=== PATIENT | male | born 1935 | race Caucasian/White ===

== ENCOUNTER 2022-02-22 14:03 | Inpatient (IN) | payer MEDICARE, SELFPAY ==
[2022-02-22] VITALS (9 sets, daily range): BP systolic 113–128; BP diastolic 52–74; PULSE 74–98; RESP 16; TEMP 36.7; O2SAT 94–100; BMI 25.7; BMI 25.3
--- NOTE | 2022-02-22 14:45 | ED.GENADULT ---
HPI - General Adult General Chief complaint: Extremity Pain/Injury, Lower Stated complaint: Weeping Leg Time Seen by Provider: 02/22/22 14:16 Source: patient and family History of Present Illness HPI narrative: 86-year-old man presenting to the emergency department [facility] on recommendation of wound care provider who were now able to assess him at his place of residence with ?Trevor who is the fiancee of his daughter (daughter lives there also) where he has been residing again over the last few weeks since discharge from long term I believe [facility] in [facility]. This is the name that Spencer gives me. Information is a little disconnected in my conversation with him; I am able to reach granddaughter to get more information. I do not have contact information for erin and daughter is not available. Apparently has chronic right-sided hip pain which is Spencer's primary complaint today. Wound care came to assess him and felt that due to odor and drainage from wounds in setting of edema and heart failure, that he be evaluated. Last hospitalized here in September of this year, please see below, wound cultures also were obtained. Spencer denies recent falls. Per my conversation with his granddaughter he has consulted with a surgeon regarding his right hip for replacement but due to sores in the area and elsewhere on his body needed to see wound care and orthopedic surgeon referred I believe to [facility], to heal these wounds prior to proceeding with this hip repair. He has not had any fever apparently. I would note that he feels warm on my exam but afebrile on admission. He is not complaining of wound specific area pain. On exam I see eschar to areas on his skin; unclear how long they have looked like this. I ask Spencer whether not he takes pain medication. He is unclear on this. Granddaughter notes low-dose oxycodone which was to be increased. Imported from September 2021 admission Past Medical History 1. Hypertension. 2. Hypercholesterolemia. 3. Ischemic stroke in 2010 after a knee surgery. His right side was affected along with balance. He has minimal residual deficits except for balance. 4. Balance problem from previous stroke. 5. Vitamin-D deficiency. 6. Sensorineural hearing loss bilaterally. 7. DVT of the right lower extremity in 2019. 8. Atrial fibrillation. 9. Gross hematuria noted during a hospitalization in March 2021. 10. Left complex renal cyst. 11. Right quadriceps weakness. 12. Right lower extremity ulcers. 13. Chronic diastolic heart failure. Patient had an echo done 08/26/2021, but I do not have access to those results. His most recent echo that I can find the results for was 04/08/21 and is as follows: 1. Normal LV size, normal wall thickness, normal global systolic function with an estimated EF of 60 - 65%. 2. Right ventricular cavity size is mildly enlarged, global systolic RV function is normal. 3. Severely enlarged left atrium. 4. The aortic valve is sclerotic, no stenosis and trivial regurgitation. 5. The mitral valve is normal, mild mitral regurgitation. 6. The inferior vena cava is dilated, respiratory size variation greater than 50%. 7. 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 8. 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 9. 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 There is small residual L-R shunt. 14. Bilateral lower extremity edema. 15. Anemia during hospitalization 09/29/2021. 16. Chronic anticoagulation with Eliquis for atrial fibrillation. Past Surgical History 1. Appendectomy. 2. Colonoscopy screening in 2009 which was normal. 3. PFO closure in 2009. 4. Bilateral knee replacement in 2009. Your 5. EGD with biopsy 09/30/2021. Wound cultures from September 2021 showed broadly sensitive Enterococcus faecalis Related Data Home Medications Medication Instructions Recorded Confirmed acetaminophen 500 mg tablet 1,000 mg PO TID 02/22/22 02/22/22 apixaban 5 mg tablet (Eliquis) 5 mg PO Q12H 02/22/22 02/22/22 cyanocobalamin (vitamin B-12) 1,000 mcg PO DAILY 02/22/22 02/22/22 1,000 mcg tablet furosemide 40 mg tablet 40 mg PO DAILY 02/22/22 02/22/22 rosuvastatin 5 mg tablet 5 mg PO Q24H 02/22/22 02/22/22 sennosides 8.6 mg-docusate sodium 4 tab-cap PO BID 02/22/22 02/22/22 50 mg tablet (Senna Plus) tamsulosin 0.4 mg capsule 0.4 mg PO Q24H 02/22/22 02/22/22 Allergies Allergy/AdvReac Type Severity Reaction Status Date / Time No Known Drug Allergies Allergy Verified 02/22/22 14:16 Review of Systems Status of ROS: Reports: unobtainable due to mental status (Unreliable, obtained from granddaughter) [facility] Medical History (Updated 02/23/22 @ 00:51 by Alana Renee MD) Ambulatory dysfunction Balance problem BPH (benign prostatic hyperplasia) Cellulitis of right lower extremity CKD (chronic kidney disease), stage III Complex renal cyst Constipation CVA (cerebral vascular accident) Diastolic heart failure DVT (deep venous thrombosis) Gross hematuria Hypercholesterolemia Hypertension Lower extremity ulceration Normal colonoscopy Normocytic anemia Permanent atrial fibrillation Pressure ulcer Primary osteoarthritis of right hip Quadriceps weakness Sensorineural hearing loss (SNHL) of both ears Severe sepsis with acute organ dysfunction Subjective tinnitus of right ear Urinary retention with incomplete bladder emptying Vitamin D deficiency Surgical History (Updated 02/23/22 @ 00:27 by Alana Renee MD) H/O esophagogastroduodenoscopy History of bilateral knee replacement Hx of appendectomy S/P patent foramen ovale closure Family History (Updated 02/23/22 @ 00:28 by Alana Renee MD) Mother Arthritis High blood pressure Stroke Sister Breast cancer Social History (Updated 02/23/22 @ 00:30 by Alana Renee MD) Narrative: Living with daughter and her Trevor acosta, who is an RN. Spencer wishes to be DNR/DNI. Smoking Status: Former smoker How often do you have a drink containing alcohol: never AUDIT-C Alcohol total score: 0 Non-prescribed substance use: denies use Exam Narrative: Exam Narrative: Pleasant. Flatter facies. Evidence of dementia. In no distress though clearly has pain with any manipulation of right hip. Has difficulty with recall. Mildly hard of hearing. CN 2-12 otherwise intact. Significant odor noted on entry into the patient room. Large erosions on the right leg. Mild calor and mild erythema in the area with some blistering. Generalized moderate pitting edema. Blackened eschar on the heel. Any movement of his right leg in general causes a great deal of pain response. The left foot and ankle are supported in a padded splint/boot wrapped with gauze and sanitary napkins and Telfa. There is an erosion starting on the anterior lower esquivel. No significant calor erythema or drainage. Mild edema of the foreskin and large ulcer underneath. Areas of erythema induration calor broadly over the sacral area with a central area of eschar formation. He is breathing easily. Lungs appear to be clear. Cardiovascular is distant and irregularly irregular Const: Vital Signs, click to edit/add: Vital Signs - 24 hr 02/22/22 14:12 02/22/22 15:30 02/22/22 15:00 Temperature 98.0 F Pulse Rate [Right Pulse Oximeter] 80 74 83 Respiratory Rate 16 16 16 Blood Pressure [Le ft Upper Arm] 125/74 124/66 Pulse Oximetry 99 95 Oxygen Delivery Me thod Room Air Nasal Cannula Oxygen Flow Rate 2 02/22/22 15:15 02/22/22 15:30 02/22/22 15:50 Temperature Pulse Rate [Right Pulse Oximeter] 82 76 79 Respiratory Rate 16 16 16 Blood Pressure [Le ft Upper Arm] 128/56 L 121/63 127/52 L Pulse Oximetry 94 100 100 Oxygen Delivery Me thod Nasal Cannula Nasal Cannula Nasal Cannula Oxygen Flow Rate 2 2 2 02/22/22 16:00 02/22/22 16:50 02/22/22 15:00 Temperature Pulse Rate [Right Pulse Oximeter] 81 98 Respiratory Rate 16 16 Blood Pressure [Le ft Upper Arm] 113/63 125/60 Pulse Oximetry 100 94 Oxygen Delivery Me thod Nasal Cannula Nasal Cannula Nasal Cannula Oxygen Flow Rate 2 2 2 Documenting provider has reviewed patient's vital signs: yes Course Course Hospital Course: Obtain urine from a catheterized specimen. Looked frankly purulent. Vital Signs Vital signs: Initial Vital Signs Temperature 98.0 F 02/22/22 14:12 Temperature Source Temporal Artery Scan 02/22/22 14:12 Pulse Rate 80 02/22/22 14:12 Respiratory Rate 16 02/22/22 14:12 Blood Pressure 125/74 02/22/22 14:12 Blood Pressure Mean 91 02/22/22 14:12 Blood Pressure Position Supine 02/22/22 14:12 Pulse Oximetry 99 02/22/22 14:12 Oxygen Delivery Method 02/22/22 14:12 Vital Signs Temperature 98.0 F 02/22/22 14:12 Pulse Rate 80 02/22/22 14:12 Respiratory Rate 16 02/22/22 14:12 Blood Pressure 125/74 02/22/22 14:12 Pulse Oximetry 99 02/22/22 14:12 Oxygen Delivery Method 02/22/22 14:12 Temperature 98.1 F 02/23/22 12:27 Pulse Rate 76 02/23/22 12:27 Respiratory Rate 16 02/23/22 12:27 Blood Pressure 93/49 L 02/23/22 12:27 Pulse Oximetry 95 02/23/22 12:27 Oxygen Delivery Method 02/23/22 11:00 Oxygen Flow Rate 0 02/23/22 11:00 Medical Decision Making MDM Narrative Medical decision making narrative: IV was established. Blood cultures were collected White count is doubled from what had been prior. Have now obtained urine specimen now which looks like abscess purulence. Will be initiating antibiotics. Has received IV fluids. I do have concerns regarding potential vulnerable adult status and will be discussing this with care team. upon my review of imaging -- hip/pelvis xray with severe osteoarthritic chages in right hip especially. no evidences of osteo in sacrum or calcaneus. Lab Data Labs: Lab Results 02/22/22 02/22/22 02/22/22 Range/Units 14:35 15:08 15:08 WBC 13.21 H (4.50-11.00) K/uL RBC 2.98 L (4.30-5.90) m/uL Hgb 8.3 L (13.5-17.5) gm/dL Hct 27.0 L (37.0-53.0) % MCV 91 (80-100) fL MCH 28 (26-34) pg MCHC 31 L (32-36) gm/dL RDW Coeff of Zach 23.2 H (11.5-15.5) % Plt Count 534 H (140-440) K/uL Neut % (Auto) 77.5 H (42.0-72.0) % Lymph % (Auto) 12.8 L (20-44) % [place] % (Auto) 7.1 (0.0-11.0) % Eos % (Auto) 1.4 (0.0-7.0) % Baso % (Auto) 0.5 (0.0-3.0) % Neut # (Auto) 10.20 H (1.7-7.0) K/uL Lymph # (Auto) 1.70 (0.90-2.90) K/uL [place] # (Auto) 0.90 (0.00-0.90) K/UL Eos # (Auto) 0.20 (0.00-0.50) K/uL Baso # (Auto) 0.10 (0.00-0.30) K/uL Abs Immat Gran (auto) 0.09 (0.00-0.30) K/uL INR (0.91-1.10) APTT (23-33) Seconds VBG pH (7.32-7.43) VBG pCO2 (40-50) mmHG VBG pO2 (25-47) mmHG VBG HCO3 (21-28) mmol/L Sodium 131 L (135-149) mmol/L Potassium 4.0 (3.6-5.1) mmol/L Chloride 96 (96-114) mmol/L Carbon Dioxide 27 (20-32) mmol/L BUN 33 H (7-30) mg/dL Creatinine 0.8 (0.5-1.5) mg/dL Estimated Creat Clear 65.10 Estimated GFR 86 ml/min Glucose 113 (60-115) mg/dL Venous Lactic Acid (Serial Order) Calcium 8.1 L (8.4-10.6) mg/dL Magnesium 2.1 (1.5-2.6) mg/dL Total Bilirubin 0.6 (0.1-1.5) mg/dL AST 44 H (12-35) U/L ALT 22 (4-50) U/L Alkaline Phosphatase 133 (40-150) U/L C-Reactive Protein 19.8 H (0.5-1.0) mg/dL NT-Pro-B Natriuret Pep 2240 H (0-450) PG/mL Total Protein 7.0 (6.0-8.3) g/dL Albumin 3.0 L (3.3-5.0) g/dL Urine Color (Yellow) Urine Appearance (Clear) Urine pH (5.0-8.5) Ur Specific Alexander (1.000-1.030) Urine Protein (Negative) Urine Glucose (UA) (Negative) Urine Ketones (Negative) Urine Blood (Negative) Urine Nitrite (Negative) Urine Bilirubin (Negative) Urine Urobilinogen (0.2-1.0) Ur Leukocyte Esterase (Negative) Urine RBC (0-2) Urine WBC (0-5) Ur Squamous Epith Cells (None-Few) Urine Bacteria (None) SARS-CoV-2 (PCR) Negative SARS-CoV-2 (Negative) 02/22/22 02/22/22 02/22/22 Range/Units 15:08 15:08 15:25 WBC (4.50-11.00) K/uL RBC (4.30-5.90) m/uL Hgb (13.5-17.5) gm/dL Hct (37.0-53.0) % MCV (80-100) fL MCH (26-34) pg MCHC (32-36) gm/dL RDW Coeff of Zach (11.5-15.5) % Plt Count (140-440) K/uL Neut % (Auto) (42.0-72.0) % Lymph % (Auto) (20-44) % [place] % (Auto) (0.0-11.0) % Eos % (Auto) (0.0-7.0) % Baso % (Auto) (0.0-3.0) % Neut # (Auto) (1.7-7.0) K/uL Lymph # (Auto) (0.90-2.90) K/uL [place] # (Auto) (0.00-0.90) K/UL Eos # (Auto) (0.00-0.50) K/uL Baso # (Auto) (0.00-0.30) K/uL Abs Immat Gran (auto) (0.00-0.30) K/uL INR 1.71 H (0.91-1.10) APTT 55 H (23-33) Seconds VBG pH 7.395 (7.32-7.43) VBG pCO2 45 (40-50) mmHG VBG pO2 34.8 (25-47) mmHG VBG HCO3 28 (21-28) mmol/L Sodium (135-149) mmol/L Potassium (3.6-5.1) mmol/L Chloride (96-114) mmol/L Carbon Dioxide (20-32) mmol/L BUN (7-30) mg/dL Creatinine (0.5-1.5) mg/dL Estimated Creat Clear Estimated GFR ml/min Glucose (60-115) mg/dL Venous Lactic Acid (Serial Order) Calcium (8.4-10.6) mg/dL Magnesium (1.5-2.6) mg/dL Total Bilirubin (0.1-1.5) mg/dL AST (12-35) U/L ALT (4-50) U/L Alkaline Phosphatase (40-150) U/L C-Reactive Protein (0.5-1.0) mg/dL NT-Pro-B Natriuret Pep (0-450) PG/mL Total Protein (6.0-8.3) g/dL Albumin (3.3-5.0) g/dL Urine Color (Yellow) Urine Appearance (Clear) Urine pH (5.0-8.5) Ur Specific Alexander (1.000-1.030) Urine Protein (Negative) Urine Glucose (UA) (Negative) Urine Ketones (Negative) Urine Blood (Negative) Urine Nitrite (Negative) Urine Bilirubin (Negative) Urine Urobilinogen (0.2-1.0) Ur Leukocyte Esterase (Negative) Urine RBC (0-2) Urine WBC (0-5) Ur Squamous Epith Cells (None-Few) Urine Bacteria (None) SARS-CoV-2 (PCR) (Negative) 02/22/22 Range/Units 17:05 WBC (4.50-11.00) K/uL RBC (4.30-5.90) m/uL Hgb (13.5-17.5) gm/dL Hct (37.0-53.0) % MCV (80-100) fL MCH (26-34) pg MCHC (32-36) gm/dL RDW Coeff of Zach (11.5-15.5) % Plt Count (140-440) K/uL Neut % (Auto) (42.0-72.0) % Lymph % (Auto) (20-44) % [place] % (Auto) (0.0-11.0) % Eos % (Auto) (0.0-7.0) % Baso % (Auto) (0.0-3.0) % Neut # (Auto) (1.7-7.0) K/uL Lymph # (Auto) (0.90-2.90) K/uL [place] # (Auto) (0.00-0.90) K/UL Eos # (Auto) (0.00-0.50) K/uL Baso # (Auto) (0.00-0.30) K/uL Abs Immat Gran (auto) (0.00-0.30) K/uL INR (0.91-1.10) APTT (23-33) Seconds VBG pH (7.32-7.43) VBG pCO2 (40-50) mmHG VBG pO2 (25-47) mmHG VBG HCO3 (21-28) mmol/L Sodium (135-149) mmol/L Potassium (3.6-5.1) mmol/L Chloride (96-114) mmol/L Carbon Dioxide (20-32) mmol/L BUN (7-30) mg/dL Creatinine (0.5-1.5) mg/dL Estimated Creat Clear Estimated GFR ml/min Glucose (60-115) mg/dL Venous Lactic Acid (Serial Order) Calcium (8.4-10.6) mg/dL Magnesium (1.5-2.6) mg/dL Total Bilirubin (0.1-1.5) mg/dL AST (12-35) U/L ALT (4-50) U/L Alkaline Phosphatase (40-150) U/L C-Reactive Protein (0.5-1.0) mg/dL NT-Pro-B Natriuret Pep (0-450) PG/mL Total Protein (6.0-8.3) g/dL Albumin (3.3-5.0) g/dL Urine Color Yellow (Yellow) Urine Appearance Turbid A (Clear) Urine pH 5.5 (5.0-8.5) Ur Specific Alexander 1.020 (1.000-1.030) Urine Protein 2+ A (Negative) Urine Glucose (UA) Negative (Negative) Urine Ketones Negative (Negative) Urine Blood 2+ A (Negative) Urine Nitrite Positive A (Negative) Urine Bilirubin Negative (Negative) Urine Urobilinogen 0.2 (0.2-1.0) Ur Leukocyte Esterase 3+ A (Negative) Urine RBC 2-5 A (0-2) Urine WBC >100 A (0-5) Ur Squamous Epith Cells None (None-Few) Urine Bacteria Many A (None) SARS-CoV-2 (PCR) (Negative) Discharge Plan Discharge Clinical Impression: Chronic hip pain, Edema, peripheral, Pressure ulcer, Urinary tract infection Patient Disposition: Admitted As Inpatient Condition: Stable
--- NOTE | 2022-02-22 14:48 | CRLHL7_ITS ---
For Patients: As a result of the Century Cures Act, medical imaging exams and procedure reports are released immediately into your electronic medical record. You may view this report before your referring provider. If you have questions, please contact your health care provider. INDICATION: Pain. Sacral erosion. TECHNIQUE: AP pelvis and 2 views of the right hip. COMPARISON: October 08, 2016. FINDINGS: Dramatic change in the appearance of the right hip. Specifically the right femoral head is flattened or possibly even eroded and there is deformity of the acetabulum presumably on a chronic basis although this is new compared October 14, 2016. No definite acute fracture identified. Degenerative arthritis left hip, symphysis pubis, and lower lumbar spine. Given the limitations of plain radiography, consider CT of the pelvis and right hip if fracture or infection is of clinical concern. IMPRESSION: Flattening of the right femoral head with partial subluxation of the femoral acetabular articulation. Clinical correlation is strongly recommended. Further imaging evaluation such as with CT is suggested. Dictated by Marcus Christian MD @ 02/22/2022 5:51:07 PM (Electronically Signed)
--- NOTE | 2022-02-22 14:48 | CRLHL7_ITS ---
For Patients: As a result of the Century Cures Act, medical imaging exams and procedure reports are released immediately into your electronic medical record. You may view this report before your referring provider. If you have questions, please contact your health care provider. Indication: Skin erosion, evaluate for osteo. Technique: Right calcaneus 2 views. Comparison: None. Findings: Overlying fabric artifact limits evaluation. There is a soft tissue ulceration in the plantar aspect of the heel. No gas within soft tissues. No definite radiographic evidence of osteomyelitis. Plantar calcaneal spur. No acute fracture identified. Prominent soft tissue swelling in the dorsum of the foot. Impression: 1. Soft tissue ulceration in the plantar aspect of the heel. No definite radiographic evidence of osteomyelitis. 2. Prominent soft tissue swelling in the dorsum of the foot. Dictated by Bebe Clark MD @ 02/22/2022 5:50:13 PM (Electronically Signed)
[2022-02-22] MEDS: 0.9 % SODIUM CHLORIDE 500 ML 500 ML IV (15:15)
[2022-02-22 15:22] LABS: HCO3 VBG 28 mmol/L (21-28); PCO2 VBG 45 mmHG (40-50); PO2 VBG 34.8 mmHG (25-47); pH VBG 7.395 (7.32-7.43)
[2022-02-22 15:34] LABS: Lactate Sepsis w/Reflex* 1.9 mmol/L (0.5-1.9)
[2022-02-22 15:44] LABS: SARS PCR* Negative SARS-CoV-2 (Negative)
[2022-02-22 15:45] LABS: Basophils Percent Auto 0.5 % (0.0-3.0); Eosinophils Percent Auto 1.4 % (0.0-7.0); Hemoglobin* 8.3 gm/dL (13.5-17.5); Immature Granulocytes Abs Auto 0.09 K/uL (0.00-0.30); Lymphocytes Percent Auto 12.8 % (20-44); Mean Corpuscular HGB Conc 31 gm/dL (32-36); Mean Corpuscular Hemoglobin 28 pg (26-34); Mean Corpuscular Volume 91 fL (80-100); Monocytes Percent Auto 7.1 % (0.0-11.0); Neutrophils Percent Auto 77.5 % (42.0-72.0); Platelet Count* 534 K/uL (140-440); RDW Coefficient of Variation % 23.2 % (11.5-15.5); Red Blood Count 2.98 m/uL (4.30-5.90); White Blood Count* 13.21 K/uL (4.50-11.00)
[2022-02-22 15:54] LABS: Slide Review Reflex No
[2022-02-22 15:56] LABS: Chloride* 96 mmol/L (96-114)
[2022-02-22 15:57] LABS: Sodium* 131 mmol/L (135-149)
[2022-02-22 15:59] LABS: Creatinine* 0.8 mg/dL (0.5-1.5); Estimated Glomerular Filt Rate 86 ml/min
[2022-02-22 16:00] LABS: Alanine Aminotransferase* 22 U/L (4-50); Alkaline Phosphatase* 133 U/L (40-150); Aspartate Amino Transferase* 44 U/L (12-35); Bilirubin Total* 0.6 mg/dL (0.1-1.5); Blood Urea Nitrogen* 33 mg/dL (7-30); Carbon Dioxide* 27 mmol/L (20-32); Glucose* 113 mg/dL (60-115)
[2022-02-22 16:01] LABS: Calcium* 8.1 mg/dL (8.4-10.6); Magnesium* 2.1 mg/dL (1.5-2.6)
[2022-02-22 16:01] LABS: INR 1.71 (0.91-1.10); Partial Thromboplastin Time* 55 Seconds (23-33); Prothrombin Time 20.5 Seconds
[2022-02-22 16:09] LABS: NT Pro B Type NatriureticPept* 2240 PG/mL (0-450)
[2022-02-22 16:14] LABS: C Reactive Protein* 19.8 mg/dL (0.5-1.0)
[2022-02-22] MEDS: OxyCODONE/APAP 5-325 TABLET 2 TAB PO (16:52)
[2022-02-22 17:26] LABS: Appearance Urine Turbid (Clear); Bilirubin Urine Negative (Negative); Blood Urine 2+ (Negative); Color Urine Yellow (Yellow); Glucose Urine Negative (Negative); Ketones Urine Negative (Negative); Leukocyte Esterase Urine 3+ (Negative); Nitrite Urine Positive (Negative); Protein Urine 2+ (Negative); Urobilinogen Urine 0.2 (0.2-1.0); pH Urine 5.5 (5.0-8.5)
--- NOTE | 2022-02-22 17:28 | ED.NURSE ---
500ml urine output with placement of dunham catheter, Pt again repositioned
[2022-02-22 17:35] LABS: Bacteria Urine Many; WBC Urine >100 (0-5)
[2022-02-22] MEDS: cefTRIAXone 1 GM in 0.9 % SODIUM CHLORIDE Mini-bag 100 ML IVPB (17:48)
--- NOTE | 2022-02-22 18:15 | ED.NURSE ---
[facility] report filed. Web Report Number: [id number]
--- NOTE | 2022-02-22 18:26 | W.PC.EDHO ---
Primary Language: Preferred Language: Orientation Status: [] Alert & Oriented [x] Slight Confusion [] Known Dx Dementia Transfers By: [] Assist of 1 [] Assist of 2 [x] Lift Active Medications Generic Name Dose Route Start Last Admin Trade Name Freq PRN Reason Stop Dose Admin Ceftriaxone Sodium 1 gm/ 100 mls @ 200 mls/hr 02/22/22 17:36 02/22/22 17:48 Sodium Chloride IVPB 02/22/22 17:37 200 mls/hr ONCE ONE Administration Discontinued Medications Generic Name Dose Route Start Last Admin Trade Name Freq PRN Reason Stop Dose Admin Sodium Chloride 500 mls @ 500 mls/hr 02/22/22 14:48 02/22/22 15:15 0.9 % Sodium Chloride 500 Ml IV 02/22/22 15:47 500 mls/hr .Q1H ONE Administration Oxycodone/Acetaminophen 2 tab 02/22/22 16:21 02/22/22 16:52 Oxycodone/Apap 5-325 Tablet PO 02/22/22 16:22 2 tab ONCE ONE Administration Description of Symptoms ED Triage Present Problem Pt brought in by EMS. EMS reports wound care went Description to see pt and reported an increase in drainage, sluffing, and odor on lower legs bilaterally. Pt states he lives with daughter and daughter's boyfriend. Oxygen Administration Pulse Oximetry 94 Pulse Oximetry 100 Pulse Oximetry 100 Pulse Oximetry 100 Pulse Oximetry 94 Pulse Oximetry 95 Pulse Oximetry 99 Oxygen Delivery Method Nasal Cannula Oxygen Delivery Method Nasal Cannula Oxygen Delivery Method Nasal Cannula Oxygen Delivery Method Nasal Cannula Oxygen Delivery Method Nasal Cannula Oxygen Delivery Method Nasal Cannula Oxygen Delivery Method Room Air Oxygen Flow Rate 2 Oxygen Flow Rate 2 Oxygen Flow Rate 2 Oxygen Flow Rate 2 Oxygen Flow Rate 2 Oxygen Flow Rate 2
[2022-02-22] MEDS: OXYCODONE 5 MG TABLET PO (22:06)
[2022-02-22] MEDS: TAMSULOSIN HCL 0.4 MG CAPSULE PO (22:06)
[2022-02-22] MEDS: SODIUM CHLORIDE MINI 0.9% IVPB (22:38)
[2022-02-22] MEDS: CEFTAZIDIME IVPB (22:38)
[2022-02-22] MEDS: 0.9 % SODIUM CHLORIDE 250 ml IV (22:39)
--- NOTE | 2022-02-22 23:47 | PM.IMHP1 ---
Hospitalist- H&P: HPI History of Present Illness Time Seen by Provider: 19:30 Date Seen: 02/22/22 Chief complaint: Weeping Leg Narrative: Spencer Chan is a 86 year old male who presented to the emergency department today the request of a wound care company seeing him today for the 1st time. They were concerned about malodorous pressure ulcers that appear to be infected. Spencer had been in a TCU, went home for a couple of weeks in late December and then was readmitted to [facility] for the 1st week of January with right lower extremity cellulitis. He was treated with antibiotics and symptoms improved. He was then discharged to [facility] for ongoing nursing cares and physical rehabilitation. It is noted from the discharge summary done by Dr. Tillman that nursing attended to a sacral decubitus ulcer and venous bilateral lower extremity ulcers. According to his note, these did not improve much during his stay. His furosemide had been increased there due to persistent lower extremity edema and a Rubalcava catheter that he had for urinary retention was successfully discontinued. He did not make much progress in therapy and continued to need substantial assistance with all ADLs. His family elected to take him home. Dr. Tillman notes that there were significant discharge concerns returning home with family, including that the patient is wheelchair-bound and they do not have a ramp at the home for him to exit in case of an emergency. Abramalexi tells me that it was not going very well at home. He notes that he is completely wheelchair bound and would need the assistance of his family to even get into the wheelchair and then he would sit in it all day long. His daughter bought him a device that goes around his penis so that he could urinate without getting out of the chair. This device would be left on him all day. At night he sleeps in a recliner at home. He does not change position much during the day or at night. He is always on his bottom or back. Spencer asked me several times when he could do to heal these ulcers more quickly. He is very concerned about his condition and would like to be well again. We talked about the importance of nutrition and working hard in therapy as well as pressure relief. I indicated to him that it would take a long time to heal such deep ulcers. He says the ulcers do not hurt, but he is concerned about them. He denies any recent fevers or chills. Review of Systems Status of ROS: Reports: 10 or more systems reviewed and unremarkable except as noted in History and below [facility] Medical History (Updated 02/23/22 @ 00:51 by Alana Renee MD) Ambulatory dysfunction Balance problem BPH (benign prostatic hyperplasia) Cellulitis of right lower extremity CKD (chronic kidney disease), stage III Complex renal cyst Constipation CVA (cerebral vascular accident) Diastolic heart failure DVT (deep venous thrombosis) Gross hematuria Hypercholesterolemia Hypertension Lower extremity ulceration Normal colonoscopy Normocytic anemia Permanent atrial fibrillation Pressure ulcer Primary osteoarthritis of right hip Quadriceps weakness Sensorineural hearing loss (SNHL) of both ears Severe sepsis with acute organ dysfunction Subjective tinnitus of right ear Urinary retention with incomplete bladder emptying Vitamin D deficiency Surgical History (Updated 02/23/22 @ 00:27 by Alana Renee MD) H/O esophagogastroduodenoscopy History of bilateral knee replacement Hx of appendectomy S/P patent foramen ovale closure Family History (Updated 02/23/22 @ 00:28 by Alana Renee MD) Mother Arthritis High blood pressure Stroke Sister Breast cancer Social History (Updated 02/23/22 @ 00:30 by Alana Renee MD) Narrative: Living with daughter and her Trevor acosta, who is an RN. Spencer wishes to be DNR/DNI. Smoking Status: Former smoker How often do you have a drink containing alcohol: never AUDIT-C Alcohol total score: 0 Non-prescribed substance use: denies use Meds Home Medications and Allergies Home Medications Medication Instructions Recorded Confirmed Type acetaminophen 500 mg tablet 1,000 mg PO TID 02/22/22 02/22/22 History apixaban 5 mg tablet (Eliquis) 5 mg PO Q12H 02/22/22 02/22/22 History cyanocobalamin (vitamin B-12) 1,000 mcg PO DAILY 02/22/22 02/22/22 History 1,000 mcg tablet furosemide 40 mg tablet 40 mg PO DAILY 02/22/22 02/22/22 History rosuvastatin 5 mg tablet 5 mg PO Q24H 02/22/22 02/22/22 History sennosides 8.6 mg-docusate sodium 4 tab-cap PO BID 02/22/22 02/22/22 History 50 mg tablet (Senna Plus) tamsulosin 0.4 mg capsule 0.4 mg PO Q24H 02/22/22 02/22/22 History Allergies Allergy/AdvReac Type Severity Reaction Status Date / Time No Known Drug Allergies Allergy Verified 02/22/22 14:16 Exam Narrative: Exam Narrative: General: Gaunt, muscle wasting of extremities. [No acute distress.] [Awake alert oriented x3.] HEENT: [Normocephalic atraumatic], [pupils equally round and reactive to light and accommodation]. Oropharynx [clear]. Mucous membranes are [moist]. [No cervical lymphadenopathy, thyromegaly or carotid bruits]. No JVD. Cardiovascular: [Regular rate and rhythm]. [No murmurs, gallops, or rubs]. Chest: No increased work of breathing. [Clear to auscultation bilaterally. No crackles or wheezes]. Abdomen: Bowel sounds [present]. [Soft, nondistended, nontender.] [No hepatosplenomegaly or masses]. Extremities: [No] edema, [no cyanosis or clubbing]. Skin: [No jaundice,] [no pallor,] [no rashes]. Neuro: [Grossly intact. No focal deficits]. Const: Vital Signs, click to edit/add: Vital Signs - 24 hr 02/22/22 14:12 02/22/22 15:30 02/22/22 15:00 Temperature 98.0 F Pulse Rate [Pulse Oximeter] Pulse Rate [Right Pulse Oximeter] 80 74 83 Respiratory Rate 16 16 16 Blood Pressure [Le ft Upper Arm] 125/74 124/66 Blood Pressure [Ri ght Arm] Pulse Oximetry 99 95 Oxygen Delivery Me thod Room Air Nasal Cannula Oxygen Flow Rate 2 02/22/22 15:15 02/22/22 15:30 02/22/22 15:50 Temperature Pulse Rate [Pulse Oximeter] Pulse Rate [Right Pulse Oximeter] 82 76 79 Respiratory Rate 16 16 16 Blood Pressure [Le ft Upper Arm] 128/56 L 121/63 127/52 L Blood Pressure [Ri ght Arm] Pulse Oximetry 94 100 100 Oxygen Delivery Me thod Nasal Cannula Nasal Cannula Nasal Cannula Oxygen Flow Rate 2 2 2 02/22/22 16:00 02/22/22 16:50 02/22/22 15:00 Temperature Pulse Rate [Pulse Oximeter] Pulse Rate [Right Pulse Oximeter] 81 98 Respiratory Rate 16 16 Blood Pressure [Le ft Upper Arm] 113/63 125/60 Blood Pressure [Ri ght Arm] Pulse Oximetry 100 94 Oxygen Delivery Me thod Nasal Cannula Nasal Cannula Nasal Cannula Oxygen Flow Rate 2 2 2 02/22/22 19:23 02/22/22 19:27 Temperature 98.0 F Pulse Rate [Pulse Oximeter] 89 Pulse Rate [Right Pulse Oximeter] Respiratory Rate 16 16 Blood Pressure [Le ft Upper Arm] Blood Pressure [Ri ght Arm] 128/70 Pulse Oximetry 97 100 Oxygen Delivery Me thod Room Air Room Air Oxygen Flow Rate Hospitalist - H&P: Result Labs Labs: Short CBC 02/22/22 Range/Units 15:08 WBC 13.21 H (4.50-11.00) K/uL Hgb 8.3 L (13.5-17.5) gm/dL Hct 27.0 L (37.0-53.0) % Plt Count 534 H (140-440) K/uL BMP 02/22/22 15:08 Sodium 131 L Potassium 4.0 Chloride 96 Carbon Dioxide 27 BUN 33 H Creatinine 0.8 Glucose 113 Calcium 8.1 L Liver Function 02/22/22 Range/Units 15:08 Total Bilirubin 0.6 (0.1-1.5) mg/dL AST 44 H (12-35) U/L ALT 22 (4-50) U/L Alkaline Phosphatase 133 (40-150) U/L Albumin 3.0 L (3.3-5.0) g/dL Urine 02/22/22 Range/Units 17:05 Urine Color Yellow (Yellow) Urine Appearance Turbid A (Clear) Urine pH 5.5 (5.0-8.5) Ur Specific [place] 1.020 (1.000-1.030) Urine Protein 2+ A (Negative) Urine Glucose (UA) Negative (Negative) Assessment and Plan Assessment and plan (1) Pressure ulcer of sacral region: Problem comment: Upper sacrum, stage 3 Low right buttock, stage 3-4 Status: Acute (2) Pressure ulcer of right heel, unspecified stage: Problem comment: large eschar, probably stage 4 Status: Acute (3) Lower extremity ulceration: Status: Acute (4) Decubitus ulcer of penis, stage 3: Problem comment: Base of penis/top of scrotum. I suspect this is from the use of device he was placing over his penis for the purpose of urination like catheter Status: Acute (5) Cellulitis: Problem comment: Infected pressure ulcers, not diabetic Status: Acute (6) Malnutrition: Problem comment: Moderate protein calorie malnutrition as evidenced by skin breakdown, albumin of 3 on 02/22/2022 and gaunt appearance of face with generalized muscular atrophy of extremity Status: Acute (7) Hypertension: Status: Chronic (8) Chronic hip pain: Problem comment: Right hip osteoarthritis Status: Chronic (9) Edema, peripheral: Status: Acute (10) Pressure ulcer: Status: Inactive (11) Urinary tract infection: Status: Acute (12) Diastolic heart failure: Status: Chronic (13) Bilateral lower extremity edema: Status: Acute (14) Normocytic anemia: Status: Acute (15) Permanent atrial fibrillation: Problem comment: On Eliquis Status: Chronic (16) CKD (chronic kidney disease), stage III: Status: Chronic Plan This is a frail and debilitated individual with significant pressure ulcers. I suspect the frailty and debility are multifactorial including balance issues secondary to a remote history of stroke, right hip pain from osteoarthritis, and protein calorie malnutrition. Admit for IV treatment of cellulitis and significant pressure ulcers in need of debridement. Wound g stain and cultures are obtained. Given the appearance and smell, I suspect anaerobes, possibly also Staphcoccus and Pseudomonas. Start ceftazidime and vancomycin. This will also cover UTI, urine culture and blood cultures pending. Consult Dr. Lewis - I spoke with her over the phone this evening and she would me to obtain medical pictures of the wounds for the chart. She would also like him to be NPO after midnight in case she takes him to the OR tomorrow for debridement. She recommended wet-to-dry dressings using Vashe. Have also ordered a pressure relief mattress. Moderate to severe protein calorie malnutrition as evidence by significant debilitation, muscle wasting, low albumin, significant pressure ulcers, gaunt appearance. Start nutritional supplements and consult Nutrition. This needs to be addressed in order to support wound healing. Patient has been on Eliquis for history of DVT and permanent atrial fibrillation. Hold this in anticipation of debridement. Patient has normocytic anemia, history hematuria. I have ordered iron studies, B12, and folate. Hemoglobin is currently 8.3 and I will recheck in the morning. This will need to be addressed as we consider restarting Eliquis. I am going to hold his usual oral furosemide and start IV furosemide for more rapid diuresis. Monitor creatinine. A vulnerable adult report was filed from the emergency department.
[2022-02-22] MEDS: ROSUVASTATIN CALCIUM 10 MG TABLET 5 MG PO (23:54)
[2022-02-23] VITALS (26 sets, daily range): BP systolic 85–130; BP diastolic 48–79; PULSE 76–97; RESP 12–18; TEMP 35.9–36.9; O2SAT 90–98; BMI 25.3
--- NOTE | 2022-02-23 01:07 | PC.NURSE ---
pt pleasant and cooperative. alert and oriented. Great appetite, ate 100% of dinner. Does not c/o pain, yet says ?ow? with position changes and looks uncomfortable, 5mg oxy given. VSS and WNL. Turn and repo q2h. ? Wounds?cleaned with Saline, packed with gauze soaked with Vashe, covered with dry gauze &?ABD pads. Wounds to right leg also wrapped with Kerlix and elevated on pillow. Between toes on right foot have been cleaned d/t drainage?and gauze pads placed between toes, there seems to be blisters near toes that are weeping. Behind both ears are small sores, possibly from his glasses. ? Pictures of wounds taken and sent to Joshua via [employer] lien.
[2022-02-23] MEDS: FUROSEMIDE 10 MG/ML inj 40 MG IVP (01:21)
[2022-02-23] MEDS: OXYCODONE 5 MG TABLET PO ×4 (02:14→16:53)
[2022-02-23] MEDS: SODIUM CHLORIDE 0.9 % (FLUSH) 10 ML SYRINGE 5 ML IVF ×4 (02:15→22:31)
--- NOTE | 2022-02-23 04:10 | PC.NURSE ---
VSS RA. Has a lot of pain w/repositioning q2h. Full physical assist of 2. Oxycodone 5mg given. Dressings intact to right L/E and lower back. Superficial abrasion to left L/E [employer]. NPO w/sips since midnite. Rubalcava catheter draining cloudy urine changing to clear pale yellow.
[2022-02-23] MEDS: CEFTAZIDIME IVPB (05:39)
[2022-02-23] MEDS: SODIUM CHLORIDE MINI 0.9% IVPB (05:39)
[2022-02-23 06:22] LABS: Basophils Absolute Auto 0.06 K/uL (0.00-0.30); Basophils Percent Auto 0.6 % (0.0-3.0); Eosinophils Absolute Auto 0.13 K/uL (0.00-0.50); Eosinophils Percent Auto 1.3 % (0.0-7.0); Hematocrit 19.2 % (37.0-53.0); Immature Granulocytes Abs Auto 0.11 K/uL (0.00-0.30); Lymphocytes Percent Auto 14.3 % (20-44); Mean Corpuscular HGB Conc 31 gm/dL (32-36); Mean Corpuscular Hemoglobin 28 pg (26-34); Mean Corpuscular Volume 90 fL (80-100); Monocytes Percent Auto 7.4 % (0.0-11.0); Neutrophils Percent Auto 75.3 % (42.0-72.0); Platelet Count* 457 K/uL (140-440); RDW Coefficient of Variation % 23.1 % (11.5-15.5); Red Blood Count 2.13 m/uL (4.30-5.90); White Blood Count* 10.15 K/uL (4.50-11.00)
[2022-02-23 06:31] LABS: Slide Review Reflex No
[2022-02-23 06:40] LABS: Chloride* 100 mmol/L (96-114); Iron* 30 ug/dL (49-181)
[2022-02-23 06:41] LABS: Albumin* 2.5 g/dL (3.3-5.0); Potassium* 3.3 mmol/L (3.6-5.1); Sodium* 129 mmol/L (135-149)
[2022-02-23 06:43] LABS: Bilirubin Total* 0.4 mg/dL (0.1-1.5); Carbon Dioxide* 26 mmol/L (20-32); Creatinine* 0.7 mg/dL (0.5-1.5); Estimated Glomerular Filt Rate 90 ml/min; Total Protein* 5.8 g/dL (6.0-8.3)
[2022-02-23 06:44] LABS: Alanine Aminotransferase* 16 U/L (4-50); Alkaline Phosphatase* 93 U/L (40-150); Aspartate Amino Transferase* 27 U/L (12-35); Blood Urea Nitrogen* 26 mg/dL (7-30); Calcium* 7.3 mg/dL (8.4-10.6); Glucose* 111 mg/dL (60-115)
[2022-02-23 06:50] LABS: Percent Iron Saturation 21 % (20-50); Total Iron Binding Capacity 143 ug/dL (261-462)
[2022-02-23 07:41] LABS: Vitamin B12* > 1000 pg/mL (243-894)
[2022-02-23 07:51] LABS: C Reactive Protein* 17.7 mg/dL (0.5-1.0)
[2022-02-23] MEDS: POTASSIUM CHLORIDE 10 MEQ/100 ML PIGGYBACK 100 MEQ IVPB ×3 (08:02→09:54)
[2022-02-23] MEDS: PANTOPRAZOLE SODIUM 40 MG INJ IVP (09:06)
[2022-02-23] MEDS: ACETAMINOPHEN 500 MG TABLET 1000 MG PO ×3 (09:07→22:31)
[2022-02-23] MEDS: CYANOCOBALAMIN (VITAMIN B-12) 500 MCG TABLET 1000 MCG PO (09:08)
--- NOTE | 2022-02-23 10:05 | PC.SOCIAL ---
Phone call to Pt's daughter, Yvette. Discussed the family desires for discharge planning. Yvette states that she does not want to see pt go to a intermediate or back to her home. Yvette would like to see pt go to [facility] to get care for his wounds. Yvette states pt has an appointment with [facility] on the . Discussed reasons that family does not want pt in intermediate and Yvette informed that the wounds are from the intermediate and states that pt needs to go somewhere where the facility can treat his wounds. Yvette also informed that pt was being charged $400 a day to stay in the intermediate and the family could not afford this. Yvette stated that her significant other, Trevor, is an RN and they decided to take pt to her home to try to provide care to pt. Yvette informed that pt is in need of a surgery on his right hip but states that the wounds need to be healed first.
--- NOTE | 2022-02-23 10:16 | REH.OT ---
OT: Orders received, chart reviewed, due to low Hgb and plan for procedure, will reschedule OT eval.
--- NOTE | 2022-02-23 10:40 | REH.PT ---
Orders received, chart reviewed, due to low Hgb and plan for Sx procedure, will reschedule PT eval.
--- NOTE | 2022-02-23 11:25 | PM.GSCN ---
History of Present Illness Consult details Date Seen: 02/23/22 Consult date: 02/23/22 Narrative: Patient is a pleasant 86-year-old male, who was brought into the emergency department via ambulance last night on recommendation of a wound care provider. Unsure at this time who the wound care provider was, but it sounds like it was potentially a home health nurse. He has been living with his daughter and her fiance Trevor, who has been taking care of him. He was recommended that he go in for evaluation due to foul odor and drainage from chronic wounds. Patient is a poor historian. He is unsure how long the wounds have been present, but denies any significant pain or discomfort to them specifically. His main complaint is right-sided hip pain, that worsens with manipulation or positioning. He does take narcotics daily for this. He is completely wheelchair bound and needs assistance for his ADLs. It sounds like he would be placed in his wheelchair and stay there all day long. His daughter bought a device to go around his penis to have him urinate without getting out of his chair, which would stay in place all day long. At night he sleeps in a recliner and is unable to reposition himself. He is always sitting on his bottom or back. He is very motivated to heal these wounds. He denies any fevers or chills. He does take Eliquis daily for atrial fibrillation and upon evaluation was noted to have a hemoglobin of 6.0. Denies any bloody bowel movements or hematemesis. Review of Systems Status of ROS: Reports: 10 or more systems reviewed and unremarkable except as noted in History and below Const: Reports: fatigue and malaise Endo: Reports: fatigue PFSH PFSH Medical History (Updated 02/23/22 @ 00:51 by Alana Renee MD) Ambulatory dysfunction Balance problem BPH (benign prostatic hyperplasia) Cellulitis of right lower extremity CKD (chronic kidney disease), stage III Complex renal cyst Constipation CVA (cerebral vascular accident) Diastolic heart failure DVT (deep venous thrombosis) Gross hematuria Hypercholesterolemia Hypertension Lower extremity ulceration Normal colonoscopy Normocytic anemia Permanent atrial fibrillation Pressure ulcer Primary osteoarthritis of right hip Quadriceps weakness Sensorineural hearing loss (SNHL) of both ears Severe sepsis with acute organ dysfunction Subjective tinnitus of right ear Urinary retention with incomplete bladder emptying Vitamin D deficiency Surgical History (Updated 02/23/22 @ 00:27 by Alana Renee MD) H/O esophagogastroduodenoscopy History of bilateral knee replacement Hx of appendectomy S/P patent foramen ovale closure Family History (Updated 02/23/22 @ 00:28 by Alana Renee MD) Mother Arthritis High blood pressure Stroke Sister Breast cancer Social History (Updated 02/23/22 @ 00:30 by Alana Renee MD) Narrative: Living with daughter and her Trevor acosta, who is an RN. Spencer wishes to be DNR/DNI. Smoking Status: Former smoker How often do you have a drink containing alcohol: never AUDIT-C Alcohol total score: 0 Non-prescribed substance use: denies use Meds Home Medications and Allergies Home Medications Medication Instructions Recorded Confirmed Type acetaminophen 500 mg tablet 1,000 mg PO TID 02/22/22 02/22/22 History apixaban 5 mg tablet (Eliquis) 5 mg PO Q12H 02/22/22 02/22/22 History cyanocobalamin (vitamin B-12) 1,000 mcg PO DAILY 02/22/22 02/22/22 History 1,000 mcg tablet furosemide 40 mg tablet 40 mg PO DAILY 02/22/22 02/22/22 History rosuvastatin 5 mg tablet 5 mg PO Q24H 02/22/22 02/22/22 History sennosides 8.6 mg-docusate sodium 4 tab-cap PO BID 02/22/22 02/22/22 History 50 mg tablet (Senna Plus) tamsulosin 0.4 mg capsule 0.4 mg PO Q24H 02/22/22 02/22/22 History Allergies Allergy/AdvReac Type Severity Reaction Status Date / Time No Known Drug Allergies Allergy Verified 02/22/22 14:16 Exam Narrative: Exam Narrative: General: Patient lying in bed, nontoxic in appearance Respiratory: Equal breath rise bilaterally, maintained on room air CV: Regular rhythm rate, well perfused Abdomen: Soft, nontender, nondistended. Extremities: 2+ bilateral lower extremity edema, some weepiness to the skin. His right lower leg with dressings in place. * wound pictures in the chart were reviewed. Evidence of significant necrosis. Exam deferred at this time with further evaluation being performed in the operating room under anesthesia. Const: Vital Signs, click to edit/add: Vital Signs - 24 hr 02/22/22 14:12 02/22/22 15:30 02/22/22 15:00 Temperature 98.0 F Pulse Rate Pulse Rate [Pulse Oximeter] Pulse Rate [Right Pulse Oximeter] 80 74 83 Respiratory Rate 16 16 16 Blood Pressure Blood Pressure [Le ft Upper Arm] 125/74 124/66 Blood Pressure [Ri ght Arm] Pulse Oximetry 99 95 Oxygen Delivery Me thod Room Air Nasal Cannula Oxygen Flow Rate 2 02/22/22 15:15 02/22/22 15:30 02/22/22 15:50 Temperature Pulse Rate Pulse Rate [Pulse Oximeter] Pulse Rate [Right Pulse Oximeter] 82 76 79 Respiratory Rate 16 16 16 Blood Pressure Blood Pressure [Le ft Upper Arm] 128/56 L 121/63 127/52 L Blood Pressure [Ri ght Arm] Pulse Oximetry 94 100 100 Oxygen Delivery Me thod Nasal Cannula Nasal Cannula Nasal Cannula Oxygen Flow Rate 2 2 2 02/22/22 16:00 02/22/22 16:50 02/22/22 15:00 Temperature Pulse Rate Pulse Rate [Pulse Oximeter] Pulse Rate [Right Pulse Oximeter] 81 98 Respiratory Rate 16 16 Blood Pressure Blood Pressure [Le ft Upper Arm] 113/63 125/60 Blood Pressure [Ri ght Arm] Pulse Oximetry 100 94 Oxygen Delivery Me thod Nasal Cannula Nasal Cannula Nasal Cannula Oxygen Flow Rate 2 2 2 02/22/22 19:23 02/22/22 19:27 02/23/22 00:25 Temperature 98.0 F 98.5 F Pulse Rate Pulse Rate [Pulse Oximeter] 89 85 Pulse Rate [Right Pulse Oximeter] Respiratory Rate 16 16 16 Blood Pressure Blood Pressure [Le ft Upper Arm] Blood Pressure [Ri ght Arm] 128/70 122/72 Pulse Oximetry 97 100 97 Oxygen Delivery Me thod Room Air Room Air Room Air Oxygen Flow Rate 02/23/22 03:45 02/23/22 07:00 02/23/22 10:24 Temperature 98.3 F 97.8 F Pulse Rate 82 Pulse Rate [Pulse Oximeter] 97 83 Pulse Rate [Right Pulse Oximeter] Respiratory Rate 16 16 18 Blood Pressure 130/79 Blood Pressure [Le ft Upper Arm] Blood Pressure [Ri ght Arm] 117/57 L Pulse Oximetry 97 97 Oxygen Delivery Me thod Room Air Oxygen Flow Rate 02/23/22 07:00 02/23/22 10:40 02/23/22 11:00 Temperature 98.1 F 96.8 F L 96.8 F L Pulse Rate 88 Pulse Rate [Pulse Oximeter] 83 84 Pulse Rate [Right Pulse Oximeter] Respiratory Rate 18 16 16 Blood Pressure 99/48 L Blood Pressure [Le ft Upper Arm] Blood Pressure [Ri ght Arm] 107/50 L 97/57 L Pulse Oximetry 97 94 97 Oxygen Delivery Me thod Room Air Room Air Oxygen Flow Rate 2 0 Results Labs Labs: Abnormal lab results 02/22/22 02/22/22 02/22/22 Range/Units 15:08 15:08 15:25 WBC 13.21 H (4.50-11.00) K/uL RBC 2.98 L (4.30-5.90) m/uL Hgb 8.3 L (13.5-17.5) gm/dL Hct 27.0 L (37.0-53.0) % MCHC 31 L (32-36) gm/dL RDW Coeff of Zach 23.2 H (11.5-15.5) % Plt Count 534 H (140-440) K/uL Neut % (Auto) 77.5 H (42.0-72.0) % Lymph % (Auto) 12.8 L (20-44) % Neut # (Auto) 10.20 H (1.7-7.0) K/uL INR 1.71 H (0.91-1.10) APTT 55 H (23-33) Seconds Sodium 131 L (135-149) mmol/L Potassium (3.6-5.1) mmol/L BUN 33 H (7-30) mg/dL Calcium 8.1 L (8.4-10.6) mg/dL Iron (49-181) ug/dL TIBC (261-462) ug/dL AST 44 H (12-35) U/L C-Reactive Protein 19.8 H (0.5-1.0) mg/dL NT-Pro-B Natriuret Pep 2240 H (0-450) PG/mL Total Protein (6.0-8.3) g/dL Albumin 3.0 L (3.3-5.0) g/dL Vitamin B12 (243-894) pg/mL Urine Appearance (Clear) Urine Protein (Negative) Urine Blood (Negative) Urine Nitrite (Negative) Ur Leukocyte Esterase (Negative) Urine RBC (0-2) Urine WBC (0-5) Urine Bacteria (None) Crossmatch ([facility]) 02/22/22 02/23/22 02/23/22 Range/Units 17:05 05:50 05:50 WBC (4.50-11.00) K/uL RBC 2.13 L (4.30-5.90) m/uL Hgb 6.0 L* (13.5-17.5) gm/dL Hct 19.2 L (37.0-53.0) % MCHC 31 L (32-36) gm/dL RDW Coeff of Zach 23.1 H (11.5-15.5) % Plt Count 457 H (140-440) K/uL Neut % (Auto) 75.3 H (42.0-72.0) % Lymph % (Auto) 14.3 L (20-44) % Neut # (Auto) 7.60 H (1.7-7.0) K/uL INR (0.91-1.10) APTT (23-33) Seconds Sodium 129 L (135-149) mmol/L Potassium 3.3 L (3.6-5.1) mmol/L BUN (7-30) mg/dL Calcium 7.3 L (8.4-10.6) mg/dL Iron (49-181) ug/dL TIBC (261-462) ug/dL AST (12-35) U/L C-Reactive Protein 17.7 H (0.5-1.0) mg/dL NT-Pro-B Natriuret Pep (0-450) PG/mL Total Protein 5.8 L (6.0-8.3) g/dL Albumin 2.5 L (3.3-5.0) g/dL Vitamin B12 > 1000 H (243-894) pg/mL Urine Appearance Turbid A (Clear) Urine Protein 2+ A (Negative) Urine Blood 2+ A (Negative) Urine Nitrite Positive A (Negative) Ur Leukocyte Esterase 3+ A (Negative) Urine RBC 2-5 A (0-2) Urine WBC >100 A (0-5) Urine Bacteria Many A (None) Crossmatch ([facility]) 02/23/22 02/23/22 Range/Units 05:50 06:50 WBC (4.50-11.00) K/uL RBC (4.30-5.90) m/uL Hgb (13.5-17.5) gm/dL Hct (37.0-53.0) % MCHC (32-36) gm/dL RDW Coeff of Zach (11.5-15.5) % Plt Count (140-440) K/uL Neut % (Auto) (42.0-72.0) % Lymph % (Auto) (20-44) % Neut # (Auto) (1.7-7.0) K/uL INR (0.91-1.10) APTT (23-33) Seconds Sodium (135-149) mmol/L Potassium (3.6-5.1) mmol/L BUN (7-30) mg/dL Calcium (8.4-10.6) mg/dL Iron 30 L (49-181) ug/dL TIBC 143 L (261-462) ug/dL AST (12-35) U/L C-Reactive Protein (0.5-1.0) mg/dL NT-Pro-B Natriuret Pep (0-450) PG/mL Total Protein (6.0-8.3) g/dL Albumin (3.3-5.0) g/dL Vitamin B12 (243-894) pg/mL Urine Appearance (Clear) Urine Protein (Negative) Urine Blood (Negative) Urine Nitrite (Negative) Ur Leukocyte Esterase (Negative) Urine RBC (0-2) Urine WBC (0-5) Urine Bacteria (None) Crossmatch ([facility]) See Detail Diabetes panel 02/22/22 02/23/22 Range/Units 15:08 05:50 Sodium 131 L 129 L (135-149) mmol/L Potassium 4.0 3.3 L (3.6-5.1) mmol/L Chloride 96 100 (96-114) mmol/L Carbon Dioxide 27 26 (20-32) mmol/L BUN 33 H 26 (7-30) mg/dL Creatinine 0.8 0.7 (0.5-1.5) mg/dL Glucose 113 111 (60-115) mg/dL Calcium 8.1 L 7.3 L (8.4-10.6) mg/dL AST 44 H 27 (12-35) U/L ALT 22 16 (4-50) U/L Alkaline Phosphatase 133 93 (40-150) U/L Total Protein 7.0 5.8 L (6.0-8.3) g/dL Albumin 3.0 L 2.5 L (3.3-5.0) g/dL Calcium panel 02/22/22 02/23/22 Range/Units 15:08 05:50 Calcium 8.1 L 7.3 L (8.4-10.6) mg/dL Albumin 3.0 L 2.5 L (3.3-5.0) g/dL Pituitary panel 02/22/22 02/23/22 Range/Units 15:08 05:50 Sodium 131 L 129 L (135-149) mmol/L Potassium 4.0 3.3 L (3.6-5.1) mmol/L Chloride 96 100 (96-114) mmol/L Carbon Dioxide 27 26 (20-32) mmol/L BUN 33 H 26 (7-30) mg/dL Creatinine 0.8 0.7 (0.5-1.5) mg/dL Glucose 113 111 (60-115) mg/dL Calcium 8.1 L 7.3 L (8.4-10.6) mg/dL Adrenal panel 02/22/22 02/23/22 Range/Units 15:08 05:50 Sodium 131 L 129 L (135-149) mmol/L Potassium 4.0 3.3 L (3.6-5.1) mmol/L Chloride 96 100 (96-114) mmol/L Carbon Dioxide 27 26 (20-32) mmol/L BUN 33 H 26 (7-30) mg/dL Creatinine 0.8 0.7 (0.5-1.5) mg/dL Glucose 113 111 (60-115) mg/dL Calcium 8.1 L 7.3 L (8.4-10.6) mg/dL Total Bilirubin 0.6 0.4 (0.1-1.5) mg/dL AST 44 H 27 (12-35) U/L ALT 22 16 (4-50) U/L Alkaline Phosphatase 133 93 (40-150) U/L Total Protein 7.0 5.8 L (6.0-8.3) g/dL Albumin 3.0 L 2.5 L (3.3-5.0) g/dL All other labs normal. Assessment and Plan Assessment and plan (1) Decubitus ulcer of penis, stage 3: Problem comment: Base of penis/top of scrotum. I suspect this is from the use of device he was placing over his penis for the purpose of urination like catheter Status: Acute Assessment and Plan: Patient is an 86-year-old male, with evidence of malnutrition and multiple deep pressure wounds of the right lower extremity, perineal region, coccyx and right buttock. There is a significant amount of necrosis noted on pictures on initial evaluation, with need to go to the operating room for debridement and washout. Given the extent of these lesions the patient may need multiple OR visits. He is currently undergoing 2 units PRBC for a hemoglobin of 6.0. He has been holding his Eliquis since admission yesterday. Also found during workup was a severe urinary tract infection and leukocytosis, with patient currently receiving IV vancomycin/Zosyn. Concern for associated osteomyelitis given depth of the wounds, will plan to obtain bone cultures intraoperatively. Cultures were obtained of blood and superficial wound bed and are pending. Patient does have a history of diastolic heart failure, with evidence of bilateral lower extremity edema. No known history of diabetes or peripheral vascular disease. -OR today for evaluation of decubitus ulcer on penis, possible debridement and washout (2) Pressure ulcer of right heel, unspecified stage: Problem comment: large eschar, probably stage 4 Status: Acute Assessment and Plan: -please see above assessment. OR today for debridement and washout (3) Pressure ulcer of sacral region: Problem comment: Upper sacrum, stage 3 Low right buttock, stage 3-4 Status: Acute Assessment and Plan: -please see above assessment. Or today for debridement and washout (4) Bilateral lower extremity edema: Status: Acute Assessment and Plan: -recommend elevation of lower extremities. Will plan to apply compression wraps, if appropriate, postoperatively
[2022-02-23] MEDS: PIPERACILLIN/TAZOBACTAM 3.375 GM in 0.9 % SODIUM CHLORIDE Mini-bag 100 ML IVPB ×2 (12:15→18:45)
--- NOTE | 2022-02-23 15:53 | P.IMPN_ITS ---
Progress Note: A&P Assessment and plan (1) Pressure ulcer of sacral region: Problem details: Upper sacrum, stage 3 Low right buttock, stage 3-4 Status: Acute (2) CKD (chronic kidney disease), stage III: Status: Chronic (3) Permanent atrial fibrillation: Problem details: Will hold Eliquis due to undiagnosed acute anemia and surgery. Status: Chronic (4) Acute on chronic anemia: Problem details: Transfuse. Evaluate for cause of blood loss. Hold Eliquis temporarily pending evaluation Status: Acute (5) Malnutrition: Problem details: Moderate protein calorie malnutrition as evidenced by skin breakdown, albumin of 3 on 02/22/2022 and gaunt appearance of face with generalized muscular atrophy of extremity Status: Acute (6) Chronic hip pain: Problem details: Right hip osteoarthritis Status: Chronic (7) Debility: Problem details: Fairly severe. Likely to need retirement Status: Acute (8) Hypertension: Problem details: Blood pressure currently low. Hold blood pressure medicine Status: Chronic Time Spent With Patient Total time spent: Total time spent today is 45 minutes, 35 minutes in coordination of care discussing with other providers ongoing management of ulcers and ability Subjective Date Seen: 02/23/22 Interval history: 86-year-old male seen in followup of hospital admission for severe decubitus or pressure ulcers. He was hospitalized previously at [address] then went to retirement in [place] and then was taken home by his family. Home health nurse is concerned about malodorous discharge and large decubitus ulcers. Evaluation last night showed large sacral and right buttock ulcers which were stage III or stage IV. Today patient is able to give limited history about recent events. He reports he is not having any pain but does not tolerate any significant movement or even examination of his ulcers secondary to pain. He is not aware of any fever. At baseline he is wheelchair-bound and bedbound. His family moved him bed to chair. This morning he was noted to have a hemoglobin of 6. He is not aware of any bleeding or melanotic stools. He is not aware of previous history of anemia. He is on anticoagulation Exam Narrative: Exam Narrative: He is lying in bed and alert. Speech is fluent. He has fairly poor recall of recent events. He appears in no obvious distress except when attempt to move hi m or examine his ulcers when he gets quite a bit of pain and agitation. Respirations are clear to auscultation. Cardiovascular: S1, S2, irregular rate and rhythm. No murmur gallop or rub. Abdomen: Bowel sounds active. Abdomen is soft without tenderness. Sacral ulcer not examined today as he did not tolerate repositioning any is pending surgical debridement shortly. Const: Vital Signs, click to edit/add: Vital Signs - 24 hr 02/22/22 16:00 02/22/22 16:50 02/22/22 19:23 Temperature Pulse Rate Pulse Rate [Pulse Oximeter] Pulse Rate [Right Pulse Oximeter] 81 98 Respiratory Rate 16 16 16 Blood Pressure Blood Pressure [Le ft Upper Arm] 113/63 125/60 Blood Pressure [Ri ght Arm] Pulse Oximetry 100 94 97 Oxygen Delivery Me thod Nasal Cannula Nasal Cannula Room Air Oxygen Flow Rate 2 2 02/22/22 19:27 02/23/22 00:25 02/23/22 03:45 Temperature 98.0 F 98.5 F 98.3 F Pulse Rate Pulse Rate [Pulse Oximeter] 89 85 97 Pulse Rate [Right Pulse Oximeter] Respiratory Rate 16 16 16 Blood Pressure Blood Pressure [Le ft Upper Arm] Blood Pressure [Ri ght Arm] 128/70 122/72 117/57 L Pulse Oximetry 100 97 97 Oxygen Delivery Me thod Room Air Room Air Room Air Oxygen Flow Rate 02/23/22 07:00 02/23/22 10:24 02/23/22 07:00 Temperature 97.8 F 98.1 F Pulse Rate 82 Pulse Rate [Pulse Oximeter] 83 83 Pulse Rate [Right Pulse Oximeter] Respiratory Rate 16 18 18 Blood Pressure 130/79 Blood Pressure [Le ft Upper Arm] Blood Pressure [Ri ght Arm] 107/50 L Pulse Oximetry 97 97 Oxygen Delivery Me thod Room Air Oxygen Flow Rate 2 02/23/22 10:40 02/23/22 11:00 02/23/22 11:10 Temperature 96.8 F L 96.8 F L 96.8 F L Pulse Rate 88 76 Pulse Rate [Pulse Oximeter] 84 Pulse Rate [Right Pulse Oximeter] Respiratory Rate 16 16 16 Blood Pressure 99/48 L 97/57 L Blood Pressure [Le ft Upper Arm] Blood Pressure [Ri ght Arm] 97/57 L Pulse Oximetry 94 97 94 Oxygen Delivery Me thod Room Air Oxygen Flow Rate 0 02/23/22 12:11 02/23/22 12:27 02/23/22 12:57 Temperature 97 F L 98.1 F 97.5 F L Pulse Rate 77 76 82 Pulse Rate [Pulse Oximeter] Pulse Rate [Right Pulse Oximeter] Respiratory Rate 16 16 18 Blood Pressure 85/61 L 93/49 L 100/54 L Blood Pressure [Le ft Upper Arm] Blood Pressure [Ri ght Arm] Pulse Oximetry 94 95 98 Oxygen Delivery Me thod Oxygen Flow Rate 02/23/22 14:02 02/23/22 15:00 Temperature 97.9 F Pulse Rate 82 Pulse Rate [Pulse Oximeter] 77 Pulse Rate [Right Pulse Oximeter] Respiratory Rate 18 18 Blood Pressure 101/60 Blood Pressure [Le ft Upper Arm] Blood Pressure [Ri ght Arm] Pulse Oximetry 95 Oxygen Delivery Me thod Oxygen Flow Rate Documenting provider has reviewed patient's vital signs: yes Labs Labs: Laboratory Results - last 24 hr 02/22/22 02/22/22 02/22/22 15:08 15:08 15:08 WBC 13.21 H RBC 2.98 L Hgb 8.3 L Hct 27.0 L MCV 91 MCH 28 MCHC 31 L RDW Coeff of Zach 23.2 H Plt Count 534 H Neut % (Auto) 77.5 H Lymph % (Auto) 12.8 L [place] % (Auto) 7.1 Eos % (Auto) 1.4 Baso % (Auto) 0.5 Neut # (Auto) 10.20 H Lymph # (Auto) 1.70 [place] # (Auto) 0.90 Eos # (Auto) 0.20 Baso # (Auto) 0.10 Abs Immat Gran (auto) 0.09 INR APTT Sodium 131 L Potassium 4.0 Chloride 96 Carbon Dioxide 27 BUN 33 H Creatinine 0.8 Estimated Creat Clear 65.10 Estimated GFR 86 Glucose 113 Venous Lactic Acid (Serial Order) Calcium 8.1 L Magnesium 2.1 Iron TIBC % Saturation Total Bilirubin 0.6 AST 44 H ALT 22 Alkaline Phosphatase 133 C-Reactive Protein 19.8 H NT-Pro-B Natriuret Pep 2240 H Total Protein 7.0 Albumin 3.0 L Vitamin B12 Urine Color Urine Appearance Urine pH Ur Specific Brady Urine Protein Urine Glucose (UA) Urine Ketones Urine Blood Urine Nitrite Urine Bilirubin Urine Urobilinogen Ur Leukocyte Esterase Urine RBC Urine WBC Ur Squamous Epith Cells Urine Bacteria Blood Type Antibody Screen Crossmatch ([facility]) 02/22/22 02/22/22 02/23/22 15:25 17:05 05:50 WBC 10.15 RBC 2.13 L Hgb 6.0 L* Hct 19.2 L MCV 90 MCH 28 MCHC 31 L RDW Coeff of Zach 23.1 H Plt Count 457 H Neut % (Auto) 75.3 H Lymph % (Auto) 14.3 L [place] % (Auto) 7.4 Eos % (Auto) 1.3 Baso % (Auto) 0.6 Neut # (Auto) 7.60 H Lymph # (Auto) 1.50 [place] # (Auto) 0.80 Eos # (Auto) 0.13 Baso # (Auto) 0.06 Abs Immat Gran (auto) 0.11 INR 1.71 H APTT 55 H Sodium Potassium Chloride Carbon Dioxide BUN Creatinine Estimated Creat Clear Estimated GFR Glucose Venous Lactic Acid (Serial Order) Calcium Magnesium Iron TIBC % Saturation Total Bilirubin AST ALT Alkaline Phosphatase C-Reactive Protein NT-Pro-B Natriuret Pep Total Protein Albumin Vitamin B12 Urine Color Yellow Urine Appearance Turbid A Urine pH 5.5 Ur Specific Brady 1.020 Urine Protein 2+ A Urine Glucose (UA) Negative Urine Ketones Negative Urine Blood 2+ A Urine Nitrite Positive A Urine Bilirubin Negative Urine Urobilinogen 0.2 Ur Leukocyte Esterase 3+ A Urine RBC 2-5 A Urine WBC >100 A Ur Squamous Epith Cells None Urine Bacteria Many A Blood Type Antibody Screen Crossmatch ([facility]) 02/23/22 02/23/22 02/23/22 05:50 05:50 06:50 WBC RBC Hgb Hct MCV MCH MCHC RDW Coeff of Zach Plt Count Neut % (Auto) Lymph % (Auto) [place] % (Auto) Eos % (Auto) Baso % (Auto) Neut # (Auto) Lymph # (Auto) [place] # (Auto) Eos # (Auto) Baso # (Auto) Abs Immat Gran (auto) INR APTT Sodium 129 L Potassium 3.3 L Chloride 100 Carbon Dioxide 26 BUN 26 Creatinine 0.7 Estimated Creat Clear 65.10 Estimated GFR 90 Glucose 111 Venous Lactic Acid (Serial Order) Calcium 7.3 L Magnesium Iron 30 L TIBC 143 L % Saturation 21 Total Bilirubin 0.4 AST 27 ALT 16 Alkaline Phosphatase 93 C-Reactive Protein 17.7 H NT-Pro-B Natriuret Pep Total Protein 5.8 L Albumin 2.5 L Vitamin B12 > 1000 H Urine Color Urine Appearance Urine pH Ur Specific Brady Urine Protein Urine Glucose (UA) Urine Ketones Urine Blood Urine Nitrite Urine Bilirubin Urine Urobilinogen Ur Leukocyte Esterase Urine RBC Urine WBC Ur Squamous Epith Cells Urine Bacteria Blood Type AB Positive Antibody Screen NEGATIVE Crossmatch ([facility]) See Detail
[2022-02-23 16:16] LABS: Hemoglobin* 7.8 gm/dL (13.5-17.5)
--- NOTE | 2022-02-23 17:51 | PC.NURSE ---
Patient pleasant and cooperative. Pain with repo - oxy 5mg q4h given for this. HGB 6.0 this AM, Transfused 2U PRBC and HGB improved to 7.8. Debridement still scheduled for this evening. Pt NPO since midnight. Rubalcava patent and draining. K+ replaced todayx3 due to Potassium of 3.3. Dressings replace/reinforced PRN - no change done today due to debridement. Strong odor noted from wounds. T&R q2H. Dtr Yvette and Dtr boyfriend, Trevor, in to visit this afternoon for 5 minutes. Pt meenakshiayed Trevor to be primary contact who is a RN. Saline locked.
[2022-02-23] MEDS: LACTATED RINGERS 1000 ML 1,000 ML 35 ML IV (18:34)
--- NOTE | 2022-02-23 20:19 | P.GSOP_ITS ---
Operative Note Date of procedure: 02/23/22 Type of Procedure: 1. Debridement of coccyx pressure ulcer with irrigation 2. Debridement of right buttock pressure ulcer with irrigation 3. Debridement of right heel pressure ulcer with irrigation 4. Debridement of right lateral calf pressure ulcer with irrigation 5. Debridement of perineal pressure ulcer with irrigation Procedure Description: After discussing the risks and benefits of the procedure, the patient signed informed consent.? The operative site was marked and the patient was brought to the operating room and placed on the operating table in supine position.? Care was taken to pad the patient's pressure points.?? The patient was then intubated by anesthesia.?? The operative site was then prepped and draped in the usual sterile fashion.? A time-out was then performed. The base of the penis was examined with evidence of a 2 cm x 1 cm pressure ulcer with overlying eschar. This was gently debrided with a 15 blade scalpel down to subcutaneous tissue. Hemostasis was assured with pressure. The wound was gently irrigated and the periwound dressed with iodine swabs. The wound bed was dressed with Xeroform and a Kerlix dressing. After the penile wound was examined and dressed the patient was repositioned prone jose angel-knife. Care was taken to ensure appropriate padding. Attention was then 1st directed to the coccyx pressure wound. Evidence of an overlying eschar, which was soft and malodorous. This was excised sharply with a 10 blade scalpel in all necrotic tissue removed. Dissection was carried down into the subcutaneous tissue. There was involvement of underlying pending, but no expos ed bone or concern for osteomyelitis. The resulting wound bed measured 8 cm x 5 cm x 3 cm in size. The wound bed was soaked with a Betadine solution and irrigated copiously with the Versajet. Hemostasis was assured with electrocautery and pressure. The wound was dressed with Vashe soaked Kerlix and outer 4 x 4 and ABD dressing. The right buttock wound had an overlying eschar, with tunneling 12-3 o'clock. Again there was soft necrotic tissue and a very foul odor on the wound. The necrotic tissue was sharply debrided with a 10 scalpel. Dissection was carried down into healthy subcutaneous tissue. There was involvement of underlying muscle and tendons. The bone was exposed but did not appear necrotic. The resulting wound bed measured 10 cm x 8 cm x 8 cm in size. The wound bed with soaked with a Betadine solution and then irrigated copiously with the Versajet. Hemostasis was assured with electrocautery and pressure. The wound was dressed with Vashe soaked Kerlix and an outer 4 x 4 and ABD dressing. The right heel had a large overlying eschar. This was sharply debrided with a 10 blade scalpel. Dissection was carried down into healthy subcutaneous tissue. There did not appear to be any involvement of underlying tendons, muscle or bone. The resulting wound measured 6 x 5 x 1 cm in size. The wound bed was soaked with a Betadine solution and irrigated copiously with the Versajet. Hemostasis was assured with electrocautery and pressure. The wound was dressed with Vashe soaked 4 x 4 and ABD dressing. The right lateral calf had evidence of a pressure wounds in small area of eschar. The eschar was sharply debrided with a 10 blade scalpel and dissection carried down into healthy subcutaneous tissue. There was no tendon or muscle involvement. Resulting wound bed measured 7 x 5 x 1 cm in size . The wound bed was soaked with a Betadine solution and then irrigated copiously with the Versajet. Hemostasis was assured with pressure. The wound bed was dressed with Xeroform and Kerlix dressing. After all sterile dressings were applied the drapes were removed and a compression stocking placed on the left lower extremity. Both legs were elevated with pillows. ? The patient was then woken and transported to the recovery area in stable condition. ? The patient tolerated the procedure well. Findings: Stage IV pressure ulcer of the coccyx and right buttock. Stage III pressure ulcer of right heel. Stage II pressure ulcer of right lateral leg. Anesthesia: GETA Surgeon: Tiffany Lewis MD Estimated blood loss (mL): 250 Condition: stable Disposition: PACU
--- NOTE | 2022-02-23 20:23 | W.ANESCHARGE ---
Anesthesia Charges Start Date/Time Anesthesia Start Date: 02/23/22 Anesthesia Start Time: 18:34 Stop Date/Time Anesthesia Stop Date: 02/23/22 Anesthesia Stop Time: 20:20 Summary Emergency: Yes Extremes of Age: Over 70-CPT 16466
[2022-02-23] MEDS: TAMSULOSIN HCL 0.4 MG CAPSULE PO (22:31)
[2022-02-23] MEDS: ROSUVASTATIN CALCIUM 10 MG TABLET 5 MG PO (22:31)
[2022-02-23] MEDS: OMEPRAZOLE 20 MG CAPSULE DR PO (22:32)
[2022-02-23] MEDS: SENNOSIDES/DOCUSATE TABLET 4 TAB PO (22:33)
[2022-02-23] MEDS: 0.9 % SODIUM CHLORIDE 250 ml IV (22:34)
[2022-02-24] VITALS (12 sets, daily range): BP systolic 94–133; BP diastolic 45–78; PULSE 69–89; RESP 14–22; TEMP 36.1–36.6; O2SAT 92–99
[2022-02-24] MEDS: OXYCODONE 5 MG TABLET PO ×5 (00:19→21:39)
[2022-02-24] MEDS: PIPERACILLIN/TAZOBACTAM 3.375 GM in 0.9 % SODIUM CHLORIDE Mini-bag 100 ML IVPB ×4 (00:58→17:55)
--- NOTE | 2022-02-24 06:24 | PC.NURSE ---
SHIFT NOTE 19-: Pt back from the OR at 2100. Placed on 2L O2 PNC to keep oxygen saturations 90% and greater, weaned to 1L O2. Afebrile. Denies N/V, SOB, and CP. Turned and repositioned Q2H with a heavy 2 assist, pt is agreeable to repositioning but does tense up and resist while repositioning r/t pain. Pt does not have pain unless moving, PRN Oxycodone given x2 for pain control. Dressings are C/D/I, with exception of serosanguineous drainage from the dressing to coccyx. Rubalcava is patent and draining cloudy, yellow urine. Pt received one unit of PRBC and tolerated well. Pt resting in bed with call light within reach.
[2022-02-24 06:51] LABS: Basophils Absolute Auto 0.05 K/uL (0.00-0.30); Basophils Percent Auto 0.5 % (0.0-3.0); Eosinophils Absolute Auto 0.24 K/uL (0.00-0.50); Eosinophils Percent Auto 2.6 % (0.0-7.0); Hematocrit 25.2 % (37.0-53.0); Immature Granulocytes Abs Auto 0.05 K/uL (0.00-0.30); Lymphocytes Percent Auto 13.8 % (20-44); Mean Corpuscular HGB Conc 31 gm/dL (32-36); Mean Corpuscular Hemoglobin 28 pg (26-34); Mean Corpuscular Volume 90 fL (80-100); Monocytes Percent Auto 6.5 % (0.0-11.0); Neutrophils Percent Auto 76.1 % (42.0-72.0); Platelet Count* 382 K/uL (140-440); RDW Coefficient of Variation % 20.7 % (11.5-15.5); White Blood Count* 9.36 K/uL (4.50-11.00)
[2022-02-24 06:53] LABS: Hemoglobin* 7.9 gm/dL (13.5-17.5); Slide Review Reflex No
[2022-02-24 07:03] LABS: Chloride* 103 mmol/L (96-114); Potassium* 3.7 mmol/L (3.6-5.1); Reticulocyte Hemoglobin Equivi 23.4 pg (29.0-35.0); Reticulocyte Percent 3.5 % (0.5-2.0); Sodium* 133 mmol/L (135-149)
[2022-02-24 07:06] LABS: Blood Urea Nitrogen* 22 mg/dL (7-30); Carbon Dioxide* 24 mmol/L (20-32); Creatinine* 0.7 mg/dL (0.5-1.5); Estimated Glomerular Filt Rate 90 ml/min
[2022-02-24 07:07] LABS: Calcium* 7.4 mg/dL (8.4-10.6); Glucose* 85 mg/dL (60-115)
[2022-02-24] MEDS: LACTATED RINGERS 1000 ML 1,000 ML 125 ML IV (07:30)
[2022-02-24] MEDS: SENNOSIDES/DOCUSATE TABLET 4 TAB PO ×2 (08:44→21:38)
[2022-02-24] MEDS: CYANOCOBALAMIN (VITAMIN B-12) 500 MCG TABLET 1000 MCG PO (08:44)
[2022-02-24] MEDS: OMEPRAZOLE 20 MG CAPSULE DR PO ×2 (08:44→21:39)
[2022-02-24] MEDS: SODIUM CHLORIDE 0.9 % (FLUSH) 10 ML SYRINGE 5 ML IVF (08:45)
[2022-02-24] MEDS: ACETAMINOPHEN 500 MG TABLET 1000 MG PO ×3 (08:45→21:39)
--- NOTE | 2022-02-24 10:07 | PC.NURSE ---
Update called to Trevor (primary contact) at 0915. Trevor verbalized pt uses electric EZ stand, sleeps in lift recliner, and moves to w/c during day. Trevor also inquired about care home placement and d/c disposition. [facility] Associate verbalized SS will address this once pt is closer to d/c plan. Trevor requested [facility] in [facility] NOT be an option due to pt previously living there and unhappy with cares. Joshua to to see pt this AM at bedside, wound care to be completed today with writer Joshua, and Dr. Lowe. pt denies pain while resting however shouts out in pain with facial grimacing with even slight adjustments. continue to T&R q2h. Early dose of oxy given around 0930 prior to dressing change. Morphine ordered if pt needing more coverage. Pt drank ensure this AM and tolerated a few bites of pancakes and tompkins. Otherwise verbalizes, I am miserable sitting up., pt re-adjusted in bed and verbalizes I am ok right here for now. LUH to LLE. 3+ pitting edema to BLE/feet/ankles.
[2022-02-24] MEDS: MORPHINE 2 MG/ML inj IVP ×3 (10:31→17:50)
--- NOTE | 2022-02-24 10:45 | CRLHL7_ITS ---
For Patients: As a result of the Cures Act, medical imaging exams and procedure reports are released immediately into your electronic medical record. You may view this report before your referring provider. If you have questions, please contact your health care provider. DUPLEX ARTERIAL ULTRASOUND BILATERAL LOWER EXSTREMITY 02/24/2022 CLINICAL HISTORY: Non-healing ulcers. COMPARISON: None. TECHNIQUE: The lower/upper extremity arteries were examined per exam specific protocol with dahl-scale ultrasound, color-flow and Doppler spectral analysis. Peak systolic velocities (PSV), Doppler waveform quality and Velocity Ratios if applicable, were documented at sites per exam specific protocol. FINDINGS: Right lower extremity: Predominantly triphasic waveforms are seen throughout with monophasic waveforms noted in the popliteal artery and in the pedal arteries. No hemodynamically significant stenoses or occlusions are identified. Left lower extremity: Predominantly triphasic waveforms are seen throughout with monophasic waveforms in the anterior tibial artery. No evidence of hemodynamically significant stenoses or occlusions. RIGHT Cm/s Wave CHEMICAL DEPENDENCY THERAPIST 102.3 T DFA 98.4 T FA PROX 104.3 T FA MID 141.5 T FA DIST 98.4 T POP A 88.5 M CARLA A 101.6 B REAMING MACHINE OPERATOR FOR PLASTIC 112.7 M CHRISTINA 63.7 M DPA 24.0 M LEFT Waveform CM/S CHEMICAL DEPENDENCY THERAPIST 118.7 T DFA 93.0 T FA PROX 114.3 T FA MID 77.9 T FA DIST 170.6 T POP A 44.7 T CARLA A 44.5 T REAMING MACHINE OPERATOR FOR PLASTIC 52.5 T CHRISTINA 22.0 M DPA 117.8 T IMPRESSION: Predominantly triphasic waveforms throughout the bilateral lower extremity arterial systems with monophasic waveforms noted in the right pedal arteries, right popliteal artery and left anterior tibial artery. No hemodynamically significant stenoses or occlusions are identified. Stu Everett M.D. Vascular and Interventional Radiology [email or web address] Transcribed: 1:42 pm DW/Dictated by: Stu Everett MD @ 02/24/2022 1:25:00 PM (Electronically Signed)
--- NOTE | 2022-02-24 10:59 | PC.NURSE ---
leg wound 02/24/22
--- NOTE | 2022-02-24 11:20 | REH.PT ---
PT note: per nsg, hold PT today due to pain, dressings and not ready to mobilize pt. PT to reassess 02/25/22 for therapy.
--- NOTE | 2022-02-24 12:08 | P.IMPN_ITS ---
Progress Note: A&P Assessment and plan (1) Pressure ulcer of sacral region: Problem details: Upper sacrum, stage 3 Low right buttock, stage 3-4 Status: Acute Assessment and Plan: Co management with surgery. This will need very long-term management. (2) CKD (chronic kidney disease), stage III: Problem details: Stable Status: Chronic (3) Permanent atrial fibrillation: Problem details: Will hold Eliquis due to undiagnosed acute anemia and surgery. Status: Chronic (4) Acute on chronic anemia: Problem details: Transfuse. Evaluate for cause of blood loss. Restart Eliquis and monitor for bleeding. Start IV iron replacement Status: Acute (5) Malnutrition: Problem details: Moderate protein calorie malnutrition as evidenced by skin breakdown, albumin of 3 on 02/22/2022 and gaunt appearance of face with generalized muscular atrophy of extremity Status: Acute (6) Chronic hip pain: Problem details: Right hip osteoarthritis. Radiographically this is a severely damaged hip. He has however not a candidate for surgical intervention with his open active ulcers and infections Status: Chronic (7) Debility: Problem details: Fairly severe. Likely to need penitentiary long-term Status: Acute (8) Hypertension: Problem details: Blood pressure currently low. Hold blood pressure medicine Status: Chronic (9) Decubitus ulcer of penis, stage 3: Problem details: Base of penis/top of scrotum. I suspect this is from the use of condom catheter. Rubalcava catheter for now. Status: Acute (10) Pressure ulcer of right heel, unspecified stage: Problem details: large eschar, probably stage 4 Status: Acute (11) Wound infection: Problem details: Pending cultures and clinical progress will reassess need for ongoing antibiotics. Status: Acute Plan Continue in hospital for wound evaluation and management and plan for long-term management of debility and decubitus ulcers. Time Spent With Patient Total time spent: Total time spent today is 45 minutes, 30 minutes in coordination of care discussing with patient and other providers management of ulcers, debility, anemia, infections Subjective Date Seen: 02/24/22 Interval history: 86-year-old male seen in followup of decubitus ulcers in the context of marked debility. Patient had debridement of his ulcers yesterday in the operating room. He is seen today with his surgeon, Dr. Lewis. He reports no concerns today but complains quite a bit of pain with any movement or repositioning. Specifically denies fever, chest pain, shortness of breath, abdominal pain, nausea. Exam Narrative: Exam Narrative: He is alert and appears in no distress while lying in bed. Exhibits quite a bit of discomfort an moaning with any repositioning. Respirations are clear to auscultation. Cardiovascular: S1, S2, irregular rate and rhythm. Abdomen: Bowel sounds active. Abdomen is soft without tenderness. Deep Sacral ulcer and right upper buttock ulcer, plan tear and posterior right heel ulcers and minor venous stasis skin changes in his right leg are all evaluated. Ulcer under his penis also evaluated. He has 2+ edema in his feet. Feet are warm to touch but I do not palpate pedal pulses. Const: Vital Signs, click to edit/add: Vital Signs - 24 hr 02/23/22 12:11 02/23/22 12:27 02/23/22 12:57 Temperature 97 F L 98.1 F 97.5 F L Pulse Rate 77 76 82 Pulse Rate [Pulse Oximeter] Respiratory Rate 16 16 18 Blood Pressure 85/61 L 93/49 L 100/54 L Blood Pressure [Ri ght Arm] Pulse Oximetry 94 95 98 Oxygen Delivery Me thod Oxygen Flow Rate 02/23/22 14:02 02/23/22 15:00 02/23/22 15:00 Temperature 97.9 F 97.9 F Pulse Rate 82 Pulse Rate [Pulse Oximeter] 77 78 Respiratory Rate 18 18 18 Blood Pressure 101/60 Blood Pressure [Ri ght Arm] 107/63 Pulse Oximetry 95 95 Oxygen Delivery Me thod Room Air Oxygen Flow Rate 0 02/23/22 20:29 02/23/22 20:15 02/23/22 20:20 Temperature 97.9 F Pulse Rate 89 96 83 Pulse Rate [Pulse Oximeter] Respiratory Rate 16 16 12 Blood Pressure 119/61 118/58 L 119/67 Blood Pressure [Ri ght Arm] Pulse Oximetry 97 96 97 Oxygen Delivery Me thod Room Air Room Air Room Air Oxygen Flow Rate 02/23/22 20:25 02/23/22 20:35 02/23/22 20:40 Temperature Pulse Rate 89 80 80 Pulse Rate [Pulse Oximeter] Respiratory Rate 16 16 16 Blood Pressure 118/67 129/65 130/63 Blood Pressure [Ri ght Arm] Pulse Oximetry 94 95 94 Oxygen Delivery Me thod Room Air Room Air Room Air Oxygen Flow Rate 02/24/22 00:02 02/23/22 14:34 02/24/22 01:00 Temperature 97.2 F L 97.2 F L 97.9 F Pulse Rate 82 82 Pulse Rate [Pulse Oximeter] Respiratory Rate 18 16 14 Blood Pressure 120/53 L 111/49 L 104/55 L Blood Pressure [Ri ght Arm] Pulse Oximetry 92 96 99 Oxygen Delivery Me thod Oxygen Flow Rate 02/24/22 02:05 02/23/22 23:00 02/23/22 21:00 Temperature 97.5 F L 96.7 F L Pulse Rate 78 Pulse Rate [Pulse Oximeter] 90 Respiratory Rate 18 18 18 Blood Pressure 103/48 L Blood Pressure [Ri ght Arm] 128/60 Pulse Oximetry 96 90 Oxygen Delivery Me thod Room Air Oxygen Flow Rate 0 02/23/22 21:30 02/23/22 21:45 02/23/22 22:30 Temperature 96.8 F L 96.8 F L 97.2 F L Pulse Rate Pulse Rate [Pulse Oximeter] Respiratory Rate 16 18 16 Blood Pressure Blood Pressure [Ri ght Arm] 110/54 L 108/52 L 117/54 L Pulse Oximetry 97 96 96 Oxygen Delivery Me thod Nasal Cannula Nasal Cannula Nasal Cannula Oxygen Flow Rate 2 2 2 02/24/22 03:00 02/24/22 03:00 02/23/22 21:15 Temperature 97.6 F 97.6 F 96.7 F L Pulse Rate Pulse Rate [Pulse Oximeter] Respiratory Rate 20 20 18 Blood Pressure Blood Pressure [Ri ght Arm] 97/47 L 97/47 L 117/55 L Pulse Oximetry 93 93 96 Oxygen Delivery Me thod Nasal Cannula Nasal Cannula Nasal Cannula Oxygen Flow Rate 1 1 2 02/23/22 22:00 02/23/22 23:00 02/24/22 00:00 Temperature 96.8 F L 97.4 F L 97.9 F Pulse Rate Pulse Rate [Pulse Oximeter] Respiratory Rate 16 16 18 Blood Pressure Blood Pressure [Ri ght Arm] 114/58 L 127/56 L 120/53 L Pulse Oximetry 97 96 95 Oxygen Delivery Me thod Nasal Cannula Nasal Cannula Nasal Cannula Oxygen Flow Rate 2 2 2 02/24/22 01:00 02/24/22 02:00 02/23/22 21:00 Temperature 97.8 F 97.5 F L 96.7 F L Pulse Rate 80 Pulse Rate [Pulse Oximeter] Respiratory Rate 16 16 18 Blood Pressure Blood Pressure [Ri ght Arm] 104/55 L 103/48 L 128/60 Pulse Oximetry 98 94 Oxygen Delivery Me thod Nasal Cannula Nasal Cannula Room Air Oxygen Flow Rate 1 1 02/24/22 02:36 02/24/22 07:00 02/24/22 07:00 Temperature 97.8 F 97.7 F Pulse Rate 82 Pulse Rate [Pulse Oximeter] 69 69 Respiratory Rate 18 20 20 Blood Pressure 99/57 L Blood Pressure [Ri ght Arm] 112/55 L Pulse Oximetry 94 98 Oxygen Delivery Me thod Nasal Cannula Oxygen Flow Rate 1 02/24/22 11:00 Temperature 97.7 F Pulse Rate Pulse Rate [Pulse Oximeter] 79 Respiratory Rate 20 Blood Pressure Blood Pressure [Ri ght Arm] 133/58 L Pulse Oximetry 97 Oxygen Delivery Me thod Nasal Cannula Oxygen Flow Rate 1 Documenting provider has reviewed patient's vital signs: yes Labs Labs: Laboratory Results - last 24 hr 02/23/22 02/23/22 02/24/22 06:50 15:28 06:24 WBC 9.36 RBC 2.80 L Hgb 7.8 L* 7.9 L* Hct 25.2 L MCV 90 MCH 28 MCHC 31 L RDW Coeff of Zach 20.7 H Plt Count 382 Neut % (Auto) 76.1 H Lymph % (Auto) 13.8 L Shelby % (Auto) 6.5 Eos % (Auto) 2.6 Baso % (Auto) 0.5 Neut # (Auto) 7.10 H Lymph # (Auto) 1.30 Shelby # (Auto) 0.60 Eos # (Auto) 0.24 Baso # (Auto) 0.05 Abs Immat Gran (auto) 0.05 Absolute Retic Percent Retic Immature Retic Fraction Retic Hgb Equivalent Sodium Potassium Chloride Carbon Dioxide BUN Creatinine Estimated Creat Clear Estimated GFR Glucose Calcium Blood Type AB Positive Antibody Screen NEGATIVE Crossmatch ([facility]) See Detail 02/24/22 02/24/22 06:24 06:24 WBC RBC Hgb Hct MCV MCH MCHC RDW Coeff of Zach Plt Count Neut % (Auto) Lymph % (Auto) Shelby % (Auto) Eos % (Auto) Baso % (Auto) Neut # (Auto) Lymph # (Auto) Shelby # (Auto) Eos # (Auto) Baso # (Auto) Abs Immat Gran (auto) Absolute Retic 0.10 H Percent Retic 3.5 H Immature Retic Fraction 36.0 H Retic Hgb Equivalent 23.4 L Sodium 133 L Potassium 3.7 Chloride 103 Carbon Dioxide 24 BUN 22 Creatinine 0.7 Estimated Creat Clear 65.10 Estimated GFR 90 Glucose 85 Calcium 7.4 L Blood Type Antibody Screen Crossmatch ([facility])
--- NOTE | 2022-02-24 12:39 | PM.GSPN ---
Subjective Subjective Date Seen: 02/24/22 Interval history: Patient is doing okay this morning. He continues to have a significant amount of pain on his right hip and difficulty with repositioning because of this. He did have some insure protein drink this morning, which he tolerated well. He denies any pain at his wounds. No reported fever or chills. Exam Narrative: Exam Narrative: General: Patient is lying in bed in no acute distress, nontoxic Respiratory: Equal breath rise bilaterally, maintained on room air CV: Regular rhythm rate, well perfused Wounds: 1. Coccyx wound with dressings saturated. Some oozing noted around skin edges, this was controlled with handheld cautery. There are some areas of scattered necrosis, but overall wound bed is significantly improved postoperatively. Odor improved as well. 2. Right buttock wound dressings saturated. Some scattered areas of oozing, controlled with handheld cautery. There is still necrotic tissue within the wound bed and as slightly foul odor, but no purulent drainage or surrounding cellulitis. The periwound is blanchable and there does appear to be pressure continuing to be applied to this area. 3. Penile base wound. Eschar has been debrided, no concern for infection or oozing noted. 4. Right heel wound some necrotic subcutaneous fat still present within the wound bed, no purulent drainage or surrounding cellulitis. 5. Right lower extremity scattered wounds and ulcerations, no significant drainage noted from these. He does have +4 lower extremity edema to this leg. Const: Vital Signs, click to edit/add: Vital Signs - 24 hr 02/23/22 12:57 02/23/22 14:02 02/23/22 15:00 Temperature 97.5 F L 97.9 F Pulse Rate 82 82 Pulse Rate [Pulse Oximeter] 77 Respiratory Rate 18 18 18 Blood Pressure 100/54 L 101/60 Blood Pressure [Ri ght Arm] Pulse Oximetry 98 95 Oxygen Delivery Me thod Oxygen Flow Rate 02/23/22 15:00 02/23/22 20:29 02/23/22 20:15 Temperature 97.9 F 97.9 F Pulse Rate 89 96 Pulse Rate [Pulse Oximeter] 78 Respiratory Rate 18 16 16 Blood Pressure 119/61 118/58 L Blood Pressure [Ri ght Arm] 107/63 Pulse Oximetry 95 97 96 Oxygen Delivery Me thod Room Air Room Air Room Air Oxygen Flow Rate 0 02/23/22 20:20 02/23/22 20:25 02/23/22 20:35 Temperature Pulse Rate 83 89 80 Pulse Rate [Pulse Oximeter] Respiratory Rate 12 16 16 Blood Pressure 119/67 118/67 129/65 Blood Pressure [Ri ght Arm] Pulse Oximetry 97 94 95 Oxygen Delivery Me thod Room Air Room Air Room Air Oxygen Flow Rate 02/23/22 20:40 02/24/22 00:02 02/23/22 14:34 Temperature 97.2 F L 97.2 F L Pulse Rate 80 82 82 Pulse Rate [Pulse Oximeter] Respiratory Rate 16 18 16 Blood Pressure 130/63 120/53 L 111/49 L Blood Pressure [Ri ght Arm] Pulse Oximetry 94 92 96 Oxygen Delivery Me thod Room Air Oxygen Flow Rate 02/24/22 01:00 02/24/22 02:05 02/23/22 23:00 Temperature 97.9 F 97.5 F L Pulse Rate 78 Pulse Rate [Pulse Oximeter] Respiratory Rate 14 18 18 Blood Pressure 104/55 L 103/48 L Blood Pressure [Ri ght Arm] Pulse Oximetry 99 96 Oxygen Delivery Me thod Oxygen Flow Rate 02/23/22 21:00 02/23/22 21:30 02/23/22 21:45 Temperature 96.7 F L 96.8 F L 96.8 F L Pulse Rate Pulse Rate [Pulse Oximeter] 90 Respiratory Rate 18 16 18 Blood Pressure Blood Pressure [Ri ght Arm] 128/60 110/54 L 108/52 L Pulse Oximetry 90 97 96 Oxygen Delivery Me thod Room Air Nasal Cannula Nasal Cannula Oxygen Flow Rate 0 2 2 02/23/22 22:30 02/24/22 03:00 02/24/22 03:00 Temperature 97.2 F L 97.6 F 97.6 F Pulse Rate Pulse Rate [Pulse Oximeter] Respiratory Rate 16 20 20 Blood Pressure Blood Pressure [Ri ght Arm] 117/54 L 97/47 L 97/47 L Pulse Oximetry 96 93 93 Oxygen Delivery Me thod Nasal Cannula Nasal Cannula Nasal Cannula Oxygen Flow Rate 2 1 1 02/23/22 21:15 02/23/22 22:00 02/23/22 23:00 Temperature 96.7 F L 96.8 F L 97.4 F L Pulse Rate Pulse Rate [Pulse Oximeter] Respiratory Rate 18 16 16 Blood Pressure Blood Pressure [Ri ght Arm] 117/55 L 114/58 L 127/56 L Pulse Oximetry 96 97 96 Oxygen Delivery Me thod Nasal Cannula Nasal Cannula Nasal Cannula Oxygen Flow Rate 2 2 2 02/24/22 00:00 02/24/22 01:00 02/24/22 02:00 Temperature 97.9 F 97.8 F 97.5 F L Pulse Rate Pulse Rate [Pulse Oximeter] Respiratory Rate 18 16 16 Blood Pressure Blood Pressure [Ri ght Arm] 120/53 L 104/55 L 103/48 L Pulse Oximetry 95 98 94 Oxygen Delivery Me thod Nasal Cannula Nasal Cannula Nasal Cannula Oxygen Flow Rate 2 1 1 02/23/22 21:00 02/24/22 02:36 02/24/22 07:00 Temperature 96.7 F L 97.8 F 97.7 F Pulse Rate 80 82 Pulse Rate [Pulse Oximeter] 69 Respiratory Rate 18 18 20 Blood Pressure 99/57 L Blood Pressure [Ri ght Arm] 128/60 112/55 L Pulse Oximetry 94 98 Oxygen Delivery Me thod Room Air Nasal Cannula Oxygen Flow Rate 1 02/24/22 07:00 02/24/22 11:00 Temperature 97.7 F Pulse Rate Pulse Rate [Pulse Oximeter] 69 79 Respiratory Rate 20 20 Blood Pressure Blood Pressure [Ri ght Arm] 133/58 L Pulse Oximetry 97 Oxygen Delivery Me thod Nasal Cannula Oxygen Flow Rate 1 Labs/Imaging Labs Labs: Hemoglobin 7.9 this morning. He did receive 1 unit PRBC postoperatively, there was blood loss of 250 mL noted intraoperatively. Imaging Imaging: No new Progress Note: A&P Assessment and plan (1) Pressure ulcer of sacral region: Problem details: Upper sacrum, stage IV Low right buttock, stage IV Status: Acute Assessment and Plan: Patient is postop day 1 debridement. Dressings were changed at bedside, this was made difficult secondary to patient discomfort. He did receive IV and p.o. pain meds for repositioning during the dressing changes. There is evidence on evaluation of a moderate amount of necrotic tissue in the lower right buttock stage IV pressure ulcer. Given the patient's discomfort during the procedure and the quality of the wound I do recommend a 2nd washout in the operating room. Risks and benefits of the operative procedure were discussed at length with the patient, with all questions and concerns addressed. Will plan to take him to the OR tomorrow morning. In the interim will continue with b.i.d. dressing changes of Vashe soaked Kerlix and outer 4x4s/ABD. (2) Decubitus ulcer of penis, stage 3: Problem details: Base of penis/top of scrotum. I suspect this is from the use of condom catheter. Rubalcava catheter for now. Status: Acute Assessment and Plan: Eschar has been removed post debridement, wound is stable with no concern for infection. Will continue with dressings of Xeroform and Kerlix, to be changed b.i.d.. (3) Pressure ulcer of right heel, unspecified stage: Problem details: large eschar, stage III Status: Acute Assessment and Plan: Evidence of continued fat necrosis in portions of the wound bed. Would recommend further evaluation and debridement in the operating room tomorrow. In the interim will continue with b.i.d. dressing changes of Vashe soaked 4 x 4 and Kerlix dressing. Will also continue to apply Xeroform to ulcers of the right lower extremity and Kerlix dressing. Recommend bilateral lower extremity elevation. Continue with compression sock to left leg. (4) Wound infection: Status: Acute Assessment and Plan: Antibiotics being managed by hospitalist, appreciate their assistance.
[2022-02-24] MEDS: IRON SUCROSE COMPLEX 200 MG in 0.9 % SODIUM CHLORIDE 100 ml 100 ML 440 MG IVPB (13:50)
--- NOTE | 2022-02-24 15:10 | PC.SOCIAL ---
Received a voicemail from Jacqui Holley ([facility]). Jacqui had specific questions about when the pt. admitted to [facility] and an update on pt's status. Provided information to Jacqui as requested.
[2022-02-24 15:15] LABS: Folate, Serum > 22.3 ng/mL (>=5.9)
--- NOTE | 2022-02-24 15:18 | PC.SOCIAL ---
Phone call to Pt's daughter, Yvette. Discussed discharge plans with Yvette. Yvette understands that pt has to have medical care and is in agreement to pt discharging to a SNF. Yvette requests that Pt not go to [facility] in [place]. Yvette states the family preference is [facility] in [facility]. Yvette is agreeable to any SNF that is near [place] that can meet Pt's needs.
--- NOTE | 2022-02-24 16:13 | REH.OT ---
OT: spoke with RN and due to dressing change, pain level today, holding on OT eval. Per nsg pt having difficulty tolerating repositioning in bed and having HOB elevated for meals. Nsg followed up with therapy and reports clarified w/ family that patient was using a EZ stand mechanical lift and lift chair for transfers at home. Will check status tomorrow.
[2022-02-24] MEDS: 0.9 % SODIUM CHLORIDE 250 ml IV (17:56)
[2022-02-24] MEDS: LACTATED RINGERS 1000 ML 1,000 ML 75 ML IV (22:51)
[2022-02-24] MEDS: ROSUVASTATIN CALCIUM 10 MG TABLET 5 MG PO (22:51)
--- NOTE | 2022-02-24 23:01 | PC.NURSE ---
Shift Note [id number]: pt t&r Q2H. Increased pain with position changes despite pain medication. Dressing changes at HS, see wound assessment for details. Strong odor and moderate to heavy serosanguineous drainage from coccyx and hip wounds. BP's soft, 90's/50's MD aware. Zosyn and Vanco infused. Poor appetite but pt did eat about 25% of dinner tray consisting of meat loaf and torre beans. 100% of Ensure supplement this afternoon. Catheter patent and draining cloudy adan urine.
[2022-02-25] VITALS (15 sets, daily range): BP systolic 112–151; BP diastolic 51–91; PULSE 74–113; RESP 14–20; TEMP 36.1–36.9; O2SAT 91–95
[2022-02-25] MEDS: PIPERACILLIN/TAZOBACTAM 3.375 GM in 0.9 % SODIUM CHLORIDE Mini-bag 100 ML IVPB ×2 (02:13→06:56)
[2022-02-25] MEDS: OXYCODONE 5 MG TABLET PO ×3 (02:14→18:20)
--- NOTE | 2022-02-25 06:18 | PC.NURSE ---
Shift Note -: Pt pleasant and cooperative, VSS, afebrile, LS clear, BS active. Pt cries out with repositioning. Pt unable to assist with turning and positioning extremities. Dressings CDI, changed @ 2200 on previous shift with inspector automatic typewriter assisting Kendal MONAE. PIV patent and asymptomatic x2. See eMAR for medication administration.
[2022-02-25 07:31] LABS: Basophils Absolute Auto 0.05 K/uL (0.00-0.30); Basophils Percent Auto 0.6 % (0.0-3.0); Eosinophils Absolute Auto 0.27 K/uL (0.00-0.50); Hematocrit 29.8 % (37.0-53.0); Hemoglobin* 9.4 gm/dL (13.5-17.5); Immature Granulocytes Abs Auto 0.04 K/uL (0.00-0.30); Lymphocytes Percent Auto 13.9 % (20-44); Mean Corpuscular HGB Conc 32 gm/dL (32-36); Mean Corpuscular Hemoglobin 29 pg (26-34); Mean Corpuscular Volume 91 fL (80-100); Monocytes Percent Auto 6.1 % (0.0-11.0); Neutrophils Percent Auto 75.9 % (42.0-72.0); Platelet Count* 430 K/uL (140-440); Red Blood Count 3.29 m/uL (4.30-5.90); White Blood Count* 8.87 K/uL (4.50-11.00)
[2022-02-25 07:32] LABS: Slide Review Reflex No
[2022-02-25 07:49] LABS: Chloride* 104 mmol/L (96-114); Sodium* 135 mmol/L (135-149)
[2022-02-25 07:50] LABS: Potassium* 3.8 mmol/L (3.6-5.1)
[2022-02-25 08:01] LABS: Blood Urea Nitrogen* 20 mg/dL (7-30); Calcium* 7.4 mg/dL (8.4-10.6); Carbon Dioxide* 27 mmol/L (20-32); Creatinine* 0.7 mg/dL (0.5-1.5); Estimated Glomerular Filt Rate 90 ml/min; Glucose* 89 mg/dL (60-115)
[2022-02-25] MEDS: LACTATED RINGERS 1000 ML 1,000 ML 35 ML IV (10:41)
--- NOTE | 2022-02-25 11:00 | PM.GSPRC ---
Operative Note Date of procedure: 02/25/22 Type of Procedure: 1. Debridement of coccyx pressure ulcer with irrigation 2. Debridement of right buttock pressure ulcer with irrigation 3. Debridement of right heel pressure ulcer with irrigation Procedure Description: After discussing the risks and benefits of the procedure, the patient signed informed consent.? The operative site was marked and the patient was brought to the operating room and placed on the operating table in supine position.? Care was taken to pad the patient's pressure points.?? The patient was then intubated by anesthesia.? The patient was then repositioned prone. Appropriate pads were applied, taking special care to make sure there was no pressure being applied to breast, penis and bilateral axilla.? The operative site was then prepped and draped in the usual sterile fashion.? A time-out was then performed. Attention was 1st directed to the right heel. Evidence of a previously debrided ulcer with persistent subcutaneous and muscle necrosis. This was sharply debrided with a 15 blade scalpel. Unfortunately the injury did probe to bone, but there is no evidence of bone necrosis. A bone culture was obtained and sent to lab. The resulting wound measured 10 x 6 x 0.5 cm in size. The wound bed was then irrigated with the Versajet and sterile dressings of Vashe soaked Kerlix with an outer dressing of 4 x 4, ABD and Kerlix. Any skin tears or open areas of the right lower extremity were were dressed with Xeroform and Kerlix dressing. The right buttock wound had approximately 30% fascial and associated muscle necrosis within the wound bed. This was sharply debrided with a 15 blade scalpel. Dissection did involve necrotic muscle and tendon, with bone exposed. Again the bone did not appear necrotic. A bone culture was obtained and sent to lab. Once all necrotic tissue was removed the wound was irrigated with the Versajet. The resulting wound measured 11 x 8 x 5 cm in size. Hemostasis was assured with electrocautery. The wound was dressed with Vashe soaked Kerlix and outer 4 x 4 and ABD dressing. The coccyx wound had a moderate amount of soft tissue necrosis. Tendon was exposed, but not overtly necrotic. Bone was not exposed or involved. The necrotic tissue was dissected sharply with a 15 blade scalpel. Hemostasis was assured with electrocautery. The resulting wound measured 7 x 7 x 2 cm in size. The Versajet was used to irrigate out the area. The wound was dressed with Vashe soaked Kerlix and an outer 4 x 4 and ABD dressing. ? Patient was then placed supine, woken and extubated. ? He was transported to the recovery area in stable condition. ? The patient tolerated the procedure well. Findings: Necrotic tissue of the coccyx, right buttock and heel pressure ulcer. At the end of the operation evidence of a stage IV pressure ulcer to the coccyx, a stage IV pressure ulcer of the right buttock and a stage IV pressure ulcer of the right heel. Anesthesia: GETA Surgeon: Tiffany Lewis MD Estimated blood loss (mL): 5 Condition: stable Disposition: PACU
--- NOTE | 2022-02-25 11:06 | W.ANESCHARGE ---
Anesthesia Charges Start Date/Time Anesthesia Start Date: 02/25/22 Anesthesia Start Time: 09:37 Stop Date/Time Anesthesia Stop Date: 02/25/22 Anesthesia Stop Time: 11:03 Summary Emergency: No Extremes of Age: Over 70-CPT 33268
--- NOTE | 2022-02-25 12:20 | W.ANESCHARGE ---
Anesthesia Charges Start Date/Time Anesthesia Start Date: 02/25/22 Anesthesia Start Time: 09:37 Stop Date/Time Anesthesia Stop Date: 02/25/22 Anesthesia Stop Time: 11:03 Summary Emergency: No Extremes of Age: Over 70-CPT 45805
--- NOTE | 2022-02-25 12:31 | REH.OT ---
OT eval on hold due to patient to OR this am.
[2022-02-25] MEDS: MORPHINE 2 MG/ML inj IVP ×2 (14:25→21:09)
[2022-02-25] MEDS: ACETAMINOPHEN 500 MG TABLET 1000 MG PO ×2 (14:27→21:09)
[2022-02-25] MEDS: metroNIDAZOLE 500 MG/100 ML PIGGYBACK IVPB ×2 (14:27→21:10)
--- NOTE | 2022-02-25 14:30 | REH.PT ---
PT eval on hold due to patient to OR this am.
[2022-02-25] MEDS: LACTATED RINGERS 1000 ML 1,000 ML IV (16:25)
--- NOTE | 2022-02-25 16:34 | PM.IMPN1 ---
Progress Note: A&P Assessment and plan (1) Pressure ulcer of sacral region: Problem details: Upper sacrum, stage IV Low right buttock, stage IV Status: Acute (2) Decubitus ulcer of penis, stage 3: Problem details: Base of penis/top of scrotum. I suspect this is from the use of condom catheter. Rubalcava catheter for now. Status: Acute (3) Pressure ulcer of right heel, unspecified stage: Problem details: large eschar, stage III Status: Acute (4) Wound infection: Problem details: Re-evaluate antibiotics based on wound cultures. Likely polymicrobial infection requiring still broad-spectrum treatment. Discontinue vancomycin unless evidence of MRSA is found. Status: Acute (5) Confusion: Problem details: Patient is not oriented to his circumstances. Unclear how much of this is dementia versus delirium. Continue to monitor and assess. 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 Now has moved from weight-bearing with transfers to Ken lift. Will at require extraordinary effort to get him back to standing for transfers. Status: Acute Plan Continue in-hospital stay for ongoing wound care, antibiotic treatment and developing disposition plan. Time Spent With Patient Total time spent: Total time spent today is 40 minutes, 30 minutes in coordination of care and discussing with other providers management of debility skin ulcers, antibiotic therapy and disposition Subjective Date Seen: 02/25/22 Interval history: 86-year-old male seen in followup of hospitalization for infected decubitus ulcers and marked debility. Patient has no concerns today. I saw him following repeat debridement of his ulcers. He reports his pain is well controlled. Exam Narrative: Exam Narrative: He is alert and appears in no distress. He is not oriented to his circumstances, not aware of being in the hospital or why he is here. Respirations are clear to auscultation. Cardiovascular: S1, S2, irregular rhythm. Abdomen is soft without tenderness or mass. Extremities with 1+ edema. He minimally moves his toes on either foot on command. Const: Vital Signs, click to edit/add: Vital Signs - 24 hr 02/24/22 19:00 02/24/22 23:00 02/24/22 23:00 Temperature 96.9 F L 97.7 F Pulse Rate Pulse Rate [Pulse Oximeter] 74 74 82 Respiratory Rate Blood Pressure Blood Pressure [Ri ght Arm] 94/45 L 117/76 Pulse Oximetry 93 94 Oxygen Delivery Me thod Room Air Room Air Oxygen Flow Rate 02/25/22 02:56 02/25/22 08:11 02/25/22 11:00 Temperature 97.8 F 97.2 F L 97.8 F Pulse Rate 74 Pulse Rate [Pulse Oximeter] 89 90 Respiratory Rate 20 18 14 Blood Pressure 119/65 Blood Pressure [Ri ght Arm] 112/51 L 134/85 Pulse Oximetry 93 94 93 Oxygen Delivery Me thod Room Air Nasal Cannula Room Air Oxygen Flow Rate 1 02/25/22 11:15 02/25/22 11:05 02/25/22 11:10 Temperature Pulse Rate 81 80 82 Pulse Rate [Pulse Oximeter] Respiratory Rate 14 15 17 Blood Pressure 129/80 121/71 Blood Pressure [Ri ght Arm] Pulse Oximetry 95 93 Oxygen Delivery Me thod Room Air Oxygen Flow Rate 02/25/22 11:10 02/25/22 11:21 02/25/22 11:25 Temperature Pulse Rate 80 93 87 Pulse Rate [Pulse Oximeter] Respiratory Rate 16 17 20 Blood Pressure 124/74 136/72 136/79 Blood Pressure [Ri ght Arm] Pulse Oximetry 94 93 Oxygen Delivery Me thod Room Air Room Air Oxygen Flow Rate 02/25/22 11:30 02/25/22 11:46 Temperature 98.4 F 97.0 F L Pulse Rate 86 Pulse Rate [Pulse Oximeter] 87 Respiratory Rate 18 20 Blood Pressure 131/71 Blood Pressure [Ri ght Arm] 151/91 H Pulse Oximetry 94 92 Oxygen Delivery Me thod Room Air Room Air Oxygen Flow Rate Documenting provider has reviewed patient's vital signs: yes Labs Labs: Laboratory Results - last 24 hr 02/25/22 02/25/22 06:38 06:38 WBC 8.87 RBC 3.29 L Hgb 9.4 L Hct 29.8 L MCV 91 MCH 29 MCHC 32 RDW Coeff of Zach 21.0 H Plt Count 430 Neut % (Auto) 75.9 H Lymph % (Auto) 13.9 L [place] % (Auto) 6.1 Eos % (Auto) 3.0 Baso % (Auto) 0.6 Neut # (Auto) 6.70 Lymph # (Auto) 1.20 [place] # (Auto) 0.50 Eos # (Auto) 0.27 Baso # (Auto) 0.05 Abs Immat Gran (auto) 0.04 Sodium 135 Potassium 3.8 Chloride 104 Carbon Dioxide 27 BUN 20 Creatinine 0.7 Estimated Creat Clear 65.10 Estimated GFR 90 Glucose 89 Calcium 7.4 L
--- NOTE | 2022-02-25 17:14 | PC.SOCIAL ---
Discharge plan: Met with dtr and son-in-law at their request regarding d/c plan. Son-in-law shared that pt was receiving terrible care at the intermediate in [facility] and they want to make sure he goes to a better facility at discharge. Provided family with website for [employer] [employer] ratings of nursing homes and resource list of intermediate in the area and surrounding areas. Family will spend time tonight on the website and provide an extensive list of acceptable facilities in their order of preference for intermediate placement. sorting livestock worker to follow up as needed.
--- NOTE | 2022-02-25 18:03 | PC.NURSE ---
Addendum entered by Yasmeen Velasco RN 02/25/22 18:45: Per charting, no BM since 02/21/22. Senna taken off 'hold' status to be given @ HS. Pt. resting right now. Original Note: Took over for patient care at approximately 1330. Pt. sleepy. Attempted to use bedpan w/out success. Morphine given x1 for pain w/movements & repositioning. Tolerated well. Dressings changed in OR after debridement, arrived to floor in this manner and intact when RN took over care. Daughter and her significant other here for approximately 45minutes this afternoon. Requested to speak w/Rn Or Lpn, notified Marlin. RN answered questions they had, provided information. Pt. ate 100% of soup, and is currently working on eating evening meal. Continuing to T&R Q2H for comfort, as well as pressure-relieving mattress in place. Pt. w/intermittent cough; encouraged to cough, deep breathe.
[2022-02-25] MEDS: polyethylene glycoL 3350 17 GM PACK PO (21:09)
[2022-02-25] MEDS: OMEPRAZOLE 20 MG CAPSULE DR PO (21:09)
[2022-02-25] MEDS: SENNOSIDES/DOCUSATE TABLET 4 TAB PO (21:09)
[2022-02-25] MEDS: ROSUVASTATIN CALCIUM 10 MG TABLET 5 MG PO (21:09)
[2022-02-25] MEDS: SODIUM CHLORIDE 0.9 % (FLUSH) 10 ML SYRINGE 5 ML IVF (22:01)
[2022-02-26 03:00] VITALS: BP 127/65; PULSE 88; RESP 20; TEMP 36.9; O2SAT 96
--- NOTE | 2022-02-26 05:11 | PC.NURSE ---
Addendum entered by Ngoc Solorio RN 02/26/22 05:37: Pt.'s abdomen soft and non-tender, bowel sounds active Original Note: Shift 7p-7a: Pt. AOx3 with intermittent forgetfulness, following commands, VSS on RA. Pt. turned and repositioned q2h, heels floated. Pt. able to help turn in bed, educated pt. on importance of turning to keep off pressure injuries. Pt.'s wound care done last night at 2130, dressings changed per MD order. Rubalcava catheter in place, patent and draining. Pt.'s abdomen firm and distended, had one small smear BM, senna and miralax given for bowel regimen. PRN morphine given for pain management prior to dressing changes. Plan for PT/OT to work with pt. today and social work supervisor to work on SNF placement
[2022-02-26] MEDS: metroNIDAZOLE 500 MG/100 ML PIGGYBACK IVPB ×3 (05:21→21:11)
[2022-02-26 07:00] VITALS: BP 111/60; PULSE 89; RESP 20; TEMP 36.6; O2SAT 95
[2022-02-26 07:07] LABS: Basophils Absolute Auto 0.04 K/uL (0.00-0.30); Basophils Percent Auto 0.5 % (0.0-3.0); Eosinophils Absolute Auto 0.19 K/uL (0.00-0.50); Eosinophils Percent Auto 2.5 % (0.0-7.0); Hematocrit 28.8 % (37.0-53.0); Immature Granulocytes Abs Auto 0.02 K/uL (0.00-0.30); Lymphocytes Percent Auto 16.8 % (20-44); Mean Corpuscular HGB Conc 31 gm/dL (32-36); Mean Corpuscular Hemoglobin 28 pg (26-34); Mean Corpuscular Volume 90 fL (80-100); Monocytes Percent Auto 7.1 % (0.0-11.0); Neutrophils Percent Auto 72.8 % (42.0-72.0); Platelet Count* 409 K/uL (140-440); Red Blood Count 3.19 m/uL (4.30-5.90); White Blood Count* 7.58 K/uL (4.50-11.00)
[2022-02-26 07:33] LABS: Chloride* 105 mmol/L (96-114); Potassium* 3.2 mmol/L (3.6-5.1); Sodium* 134 mmol/L (135-149)
[2022-02-26 07:36] LABS: Blood Urea Nitrogen* 16 mg/dL (7-30); Calcium* 7.3 mg/dL (8.4-10.6); Carbon Dioxide* 24 mmol/L (20-32); Creatinine* 0.7 mg/dL (0.5-1.5); Estimated Glomerular Filt Rate 90 ml/min; Glucose* 108 mg/dL (60-115)
[2022-02-26 07:47] LABS: Slide Review Reflex Yes
[2022-02-26 07:48] LABS: Slide Review Acceptable Review (Acceptable)
[2022-02-26] MEDS: OXYCODONE 5 MG TABLET PO ×2 (08:40→12:28)
[2022-02-26] MEDS: ACETAMINOPHEN 500 MG TABLET 1000 MG PO ×3 (08:40→20:13)
[2022-02-26] MEDS: SENNOSIDES/DOCUSATE TABLET 4 TAB PO ×2 (08:40→20:13)
[2022-02-26] MEDS: SODIUM CHLORIDE 0.9 % (FLUSH) 10 ML SYRINGE 5 ML IVF ×2 (08:40→20:14)
[2022-02-26] MEDS: APIXABAN 5 MG TABLET PO ×2 (08:40→20:12)
[2022-02-26] MEDS: CYANOCOBALAMIN (VITAMIN B-12) 500 MCG TABLET 1000 MCG PO (08:40)
[2022-02-26] MEDS: OMEPRAZOLE 20 MG CAPSULE DR PO ×2 (09:41→20:13)
[2022-02-26] MEDS: MORPHINE 2 MG/ML inj IVP ×2 (09:42→21:55)
[2022-02-26 11:00] VITALS: BP 133/65; PULSE 97; RESP 20; TEMP 36.9; O2SAT 93
--- NOTE | 2022-02-26 12:03 | PM.IMPN1 ---
Progress Note: A&P Assessment and plan (1) Pressure ulcer of sacral region: Problem details: Upper sacrum, stage IV Low right buttock, stage IV Status post 2nd debridement by surgery Status: Acute (2) Decubitus ulcer of penis, stage 3: Problem details: Base of penis/top of scrotum. I suspect this is from the use of condom catheter. Rubalcava catheter for now. Status: Acute (3) Pressure ulcer of right heel, unspecified stage: Problem details: large eschar, stage IV Status post repeat debridement by surgery Status: Acute (4) Wound infection: Problem details: Re-evaluate antibiotics based on wound cultures. Likely polymicrobial infection requiring broad-spectrum treatment. Gram-negative bacteria with moderate resistance identified so far. Clinically drainage, erythema, odor improved. White count improved. Discontinue vancomycin unless evidence of MRSA is found. Status: Acute (5) Confusion: Problem details: Patient is intermittently disoriented. Unclear how much of this is dementia versus delirium. Continue to monitor and assess. 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 In the last 4 months he has been declining from relatively independent to completely dependent. In reviewing the records it appears that patient has had decline month by month with recurrent hospitalizations and not made progress with therapy when he has been in halfway facilities. We have set a goal for him to get strong enough to transfer. Prognosis for that is guarded Status: Acute (7) Urinary retention due to benign prostatic hyperplasia: Problem details: Has had placement of Rubalcava during hospital admissions due to urinary retention. Consider trial of voiding before discharge Status: Acute (8) Edema, peripheral: Problem details: Probably best managed with compression if not interfering with wound healing Status: Acute (9) Permanent atrial fibrillation: Problem details: Eliquis has been held when he has surgery. 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 This is likely contributing to his relatively slow progress with therapy Status: Acute Plan Continue in hospital for antibiotics to treat his infected decubitus ulcers, ongoing co management was surgery for wound care, therapy to improve mobility. [employer] has been engaged to look for halfway facility as this is likely to be a long-term recovery Time Spent With Patient Total time spent: Total time spent today is 45 minutes, 30 minutes in coordination of care and discussion with patient and other providers management of disabilities, ulcers. Subjective Date Seen: 02/26/22 Interval history: 86-year-old male seen in followup of profound weakness and disability leading to worsening decubitus ulcers with infection. I did review patient records and he has been hospitalized monthly since September 2021 for heart failure, urinary infections as well as skin and soft tissue for infections. During this time he has developed decubitus ulcers. He has had an overall decline in his functional capabilities to the point he is now requiring a Ken lift. 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 Due to his active wound infections he is not a candidate for surgery at this time. He reports he is having some right leg pain from his buttock to his heel today. Exam Narrative: Exam Narrative: He is alert and appears in no distress. He is oriented to place but not time. He is unable to give much history about recent events which are obtained from the medical record. Breathing is unlabored. Lungs are clear to auscultation. Cardiovascular: S1, S2, irregularly irregular. No murmur gallop or rub. Abdomen is soft without tenderness or mass. He has trace edema in his lower extremities. Const: Vital Signs, click to edit/add: Vital Signs - 24 hr 02/25/22 14:00 02/25/22 16:00 02/25/22 19:00 Temperature 98.2 F Pulse Rate [Pulse Oximeter] 113 H 92 Respiratory Rate 20 20 20 Blood Pressure [Ri t Arm] 126/67 Pulse Oximetry 91 94 Oxygen Delivery Me thod Room Air Room Air Oxygen Flow Rate 02/25/22 22:24 02/25/22 23:00 02/26/22 03:00 Temperature 98.5 F 98.4 F Pulse Rate [Pulse Oximeter] 90 93 88 Respiratory Rate 20 20 20 Blood Pressure [Ri t Arm] 127/62 127/65 Pulse Oximetry 94 96 Oxygen Delivery Me thod Room Air Room Air Oxygen Flow Rate 02/26/22 07:00 02/26/22 07:00 Temperature 97.9 F Pulse Rate [Pulse Oximeter] 89 89 Respiratory Rate 20 20 Blood Pressure [Ri ght Arm] 111/60 Pulse Oximetry 95 Oxygen Delivery Me thod Room Air Oxygen Flow Rate 0 Documenting provider has reviewed patient's vital signs: yes Labs Labs: Laboratory Results - last 24 hr 02/26/22 02/26/22 06:23 06:23 WBC 7.58 RBC 3.19 L Hgb 9.0 L Hct 28.8 L MCV 90 MCH 28 MCHC 31 L RDW Coeff of Zach 21.0 H Plt Count 409 Neut % (Auto) 72.8 H Lymph % (Auto) 16.8 L [place] % (Auto) 7.1 Eos % (Auto) 2.5 Baso % (Auto) 0.5 Neut # (Auto) 5.50 Lymph # (Auto) 1.30 [place] # (Auto) 0.50 Eos # (Auto) 0.19 Baso # (Auto) 0.04 Abs Immat Gran (auto) 0.02 Diff Slide Review Acceptable Review Sodium 134 L Potassium 3.2 L Chloride 105 Carbon Dioxide 24 BUN 16 Creatinine 0.7 Estimated Creat Clear 65.10 Estimated GFR 90 Glucose 108 Calcium 7.3 L
--- NOTE | 2022-02-26 14:51 | PC.SOCIAL ---
Made a phone call to Pt's daughter Yvette. Yvette asked that this worker call Trevor, her significant other, for information on the SNF's that they have chosen for pt. This worker made a phone call to Trevor at [phone]. Asked if family has reviewed the SNF information that was provided to them yesterday and if they had information on what SNF's should be contacted for discharge planning. Trevor states that the first preference is [facility] in [place] and he also wanted to try [facility] in [place]. Trevor states that he is not home yet and Yvette does not come home until 2:00 pm from work. Trevor states that when Yvette is home they will review the list again together and come to [facility] to provide other options. informed Trevor that a phone call would be sufficient too so they didn't have to make the trip, unless they were coming to visit. Trevor states he will either come in or call back today with more SNF options. Made a phone call to [facility] in [place]. Spoke to Gabrielle in Admissions. Gabrielle stated that she will have an open bed on Tuesday or Tuesday of next week. Informed Gabrielle that pt may not be ready for discharge until then, so this worker will fax initial information to [facility] for review. Faxed information to [facility] at [phone]. Made a phone call to Huang in Admissions at [facility] in [place]. Left a voicemail inquiring if they have open beds for next week.
[2022-02-26 15:00] VITALS: BP 104/57; PULSE 89; RESP 20; TEMP 36.4; O2SAT 94
[2022-02-26] MEDS: bisacodyL 10 MG SUPP.RECT PR (17:43)
[2022-02-26 19:00] VITALS: BP 125/69; PULSE 82; RESP 20; TEMP 36.7; O2SAT 97
--- NOTE | 2022-02-26 19:28 | PC.NURSE ---
PT eval for transfer done today with attempt to use EZ stand. Pt did not tolerate and Ceiling lift recommended for transfers however concern for sheer with this as well. Pt tolerates sitting upright in bed for short intervals. OT and Nursing discussed cusion for chair when pt up in recliner and no pressure relieving cushions available at this time on the unit. Bambi from wound clinic consulted and working on script for Roho cushion. T&R q2h. Mepi's place on pressure areas to inner knees and left inner ankle. Pt had friend come visit and shortly after stitcher special machine came to visit. No BM since 02/21. Stool softeners given, prune juice, and suppository without results yet. Brief on and pads in place for BM. 3 smears today with under pads and brief changed. 1500 BP 104/57 - encouraged patient to drink more fluids. Pt appteite continues to be poor, encouraged meal trays, pt did order lunch and dinner and only had a few bites of each. Pt is drinking fluids well with encouragement - tolerated protein drinks, juices, and water. Wound care done with morphine given prior. Pt tolerated this quite well compared to previous changes. Report given to LETHA Goel.
[2022-02-26] MEDS: polyethylene glycoL 3350 17 GM PACK PO (20:19)
[2022-02-26] MEDS: ROSUVASTATIN CALCIUM 10 MG TABLET 5 MG PO (21:51)
[2022-02-26 22:30] VITALS: BP 122/80; PULSE 84; RESP 20; TEMP 36.6; O2SAT 97
[2022-02-27] VITALS (7 sets, daily range): BP systolic 117–134; BP diastolic 55–86; PULSE 76–99; RESP 18–22; TEMP 36.4–36.9; O2SAT 96–98
[2022-02-27] MEDS: OXYCODONE 5 MG TABLET PO ×3 (00:25→18:23)
[2022-02-27] MEDS: metroNIDAZOLE 500 MG/100 ML PIGGYBACK IVPB ×3 (05:28→21:54)
--- NOTE | 2022-02-27 06:20 | PC.NURSE ---
Shift 7p-7a: Pt. AOx3, following commands, VSS on RA. Pt. had several loose BM's tonight after days of bowel regimen prep, unfortunately also saturating his dressings on RT buttock and s/coccyx. Four dressing changes performed tonight, unable to prevent stool from soiling dressings. Pt. also had large, formed BM in bedpan. Will notify MD about situation. Rubalcava catheter patent and draining, urine output adequate. Encouraged PO intake during turning and repositioning q2h. PRN oxycodone and morphine given prior to dressing changes for pain management.
[2022-02-27 09:26] LABS: Basophils Absolute Auto 0.05 K/uL (0.00-0.30); Basophils Percent Auto 0.5 % (0.0-3.0); Eosinophils Absolute Auto 0.16 K/uL (0.00-0.50); Eosinophils Percent Auto 1.7 % (0.0-7.0); Hematocrit 30.4 % (37.0-53.0); Hemoglobin* 9.4 gm/dL (13.5-17.5); Immature Granulocytes Abs Auto 0.03 K/uL (0.00-0.30); Lymphocytes Percent Auto 14.4 % (20-44); Mean Corpuscular HGB Conc 31 gm/dL (32-36); Mean Corpuscular Hemoglobin 28 pg (26-34); Mean Corpuscular Volume 92 fL (80-100); Monocytes Percent Auto 6.3 % (0.0-11.0); Neutrophils Percent Auto 76.8 % (42.0-72.0); Platelet Count* 404 K/uL (140-440); RDW Coefficient of Variation % 21.2 % (11.5-15.5); Red Blood Count 3.31 m/uL (4.30-5.90)
[2022-02-27 09:32] LABS: Slide Review Reflex No
[2022-02-27 09:38] LABS: Chloride* 105 mmol/L (96-114); Sodium* 134 mmol/L (135-149)
[2022-02-27 09:39] LABS: Potassium* 3.5 mmol/L (3.6-5.1)
[2022-02-27 09:41] LABS: Creatinine* 0.6 mg/dL (0.5-1.5); Estimated Glomerular Filt Rate 94 ml/min
[2022-02-27 09:42] LABS: Blood Urea Nitrogen* 16 mg/dL (7-30); Calcium* 7.2 mg/dL (8.4-10.6); Carbon Dioxide* 24 mmol/L (20-32); Glucose* 99 mg/dL (60-115)
[2022-02-27] MEDS: ACETAMINOPHEN 500 MG TABLET 1000 MG PO ×3 (10:09→21:47)
[2022-02-27] MEDS: CYANOCOBALAMIN (VITAMIN B-12) 500 MCG TABLET 1000 MCG PO (10:10)
[2022-02-27] MEDS: OMEPRAZOLE 20 MG CAPSULE DR PO ×2 (10:10→21:46)
[2022-02-27] MEDS: APIXABAN 5 MG TABLET PO ×2 (10:10→21:46)
[2022-02-27] MEDS: MORPHINE 2 MG/ML inj IVP ×2 (11:50→21:03)
[2022-02-27] MEDS: SODIUM CHLORIDE 0.9 % (FLUSH) 10 ML SYRINGE 5 ML IVF ×2 (11:51→21:48)
--- NOTE | 2022-02-27 13:29 | P.IMPN_ITS ---
Progress Note: A&P Assessment and plan (1) Pressure ulcer of sacral region: Problem details: Upper sacrum, stage IV Low right buttock, stage IV Status post 2nd debridement by surgery Status: Acute Assessment and Plan: Blood cultures have been negative. Consider PICC line placement. Continue current regimen. (2) Pressure ulcer of right heel, unspecified stage: Problem details: large eschar, stage IV Status post repeat debridement by surgery Status: Acute (3) Decubitus ulcer of penis, stage 3: Problem details: Base of penis/top of scrotum. I suspect this is from the use of condom catheter. Rubalcava catheter for now. Status: Acute (4) Chronic hip pain: Problem details: Right hip osteoarthritis. Radiographically this is a severely damaged hip. He has however not a candidate for surgical intervention with his open active ulcers and infections Status: Chronic Assessment and Plan: X-rays done at admission recommended CT scan. I will follow-up on that today. 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 In the last 4 months he has been declining from relatively independent to completely dependent. In reviewing the records it appears that patient has had decline month by month with recurrent hospitalizations and not made progress with therapy when he has been in half-way facilities. We have set a goal for him to get strong enough to transfer. Prognosis for that is guarded Status: Acute (6) Debility: Problem details: Fairly severe. Likely to need senior care long-term Status: Acute (7) Malnutrition: Problem details: Moderate protein calorie malnutrition as evidenced by skin breakdown, albumin of 3 on 02/22/2022 and gaunt appearance of face with generalized muscular atrophy of extremity Status: Acute (8) Acute on chronic anemia: Problem details: Transfuse. Evaluate for cause of blood loss. Restart Eliquis and monitor for bleeding. Start IV iron replacement Status: Acute Assessment and Plan: Stable. Monitoring. (9) Permanent atrial fibrillation: Problem details: Eliquis has been held when he has surgery. 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 Status: Chronic (10) Urinary retention due to benign prostatic hyperplasia: Problem details: Has had placement of Rubalcava during hospital admissions due to urinary retention. Consider trial of voiding before discharge Status: Acute Subjective Date Seen: 02/27/22 Interval history: Daily Progress Note - Hospital Medicine Day #: 6 Day 6 of various IV abx: Rocephin, ceftazidime, vancomycin, Zosyn and now we are on day 3 of Flagyl and Levaquin CC: Hard for me to move, my pain is managed OVERNIGHT UPDATES FROM STAFF & MED, LAB, IMAGING UPDATES Vital signs are all reviewed. He is not on oxygen and his blood pressure pulse respiratory rate unremarkable. CBC reflects a chronic but improved anemia. No leukocytosis. Normal platelet count. His chemistries this morning reveal a stable and mildly low potassium, mildly low sodium. Normal renal function. CRP at last check on 02/23 was 17.7. Updated today, pending. Albumin was 2.5, I have also added this on to today's labs. Right hip x-ray from admission Flattening of the right femoral head with partial subluxation of the femoral acetabular articulation. Clinical correlation is strongly recommended. Further imaging evaluation such as with CT is suggested. Reviewing cultures: No MRSA. Bone shows no growth. Gram-negative rods in the wound culture from the right leg. Serratia odorifera resistant to cefazolin, cefoxitin Gram-negative rods, E coli in the buttock Blood culture negative Urine growing Pseudomonas previously Date of procedure: 02/25/22 Type of Procedure: 1. Debridement of coccyx pressure ulcer with irrigation Tendon was exposed, but not overtly necrotic. Bone was not exposed or involved. 2. Debridement of right buttock pressure ulcer with irrigation Dissection did involve necrotic muscle and tendon, with bone exposed. The bone did not appear necrotic 3. Debridement of right heel pressure ulcer with irrigation - the injury did probe to bone, but there is no evidence of bone necrosis. Review of Systems: See subjective Cardiac: No new chest pain/pressure/palpitations. Respiratory: no new dyspnea. GI: No abdominal bloating Objective: Awake. Coherent. Seems to have some moderate amount insight. Vitals: see above Lungs: Clear. Cardiac: S1S2. Wounds not examined. Disposition/Potential discharge - half-way is our goal secondary to his very limited mobility and need for chronic wound care. Total time is 35 minutes with greater than 50% spent in counseling and coordination of care. Exam Const: Vital Signs, click to edit/add: Vital Signs - 24 hr 02/26/22 15:00 02/26/22 15:00 02/26/22 19:00 Temperature 97.6 F 98.1 F Pulse Rate [Pulse Oximeter] 89 89 82 Respiratory Rate 20 20 20 Blood Pressure [Ri ght Arm] 104/57 L 125/69 Pulse Oximetry 94 97 Oxygen Delivery Me thod Room Air Room Air Oxygen Flow Rate 0 02/26/22 22:30 02/26/22 22:30 02/27/22 02:38 Temperature 97.8 F 98 F Pulse Rate [Pulse Oximeter] 84 84 85 Respiratory Rate 20 20 20 Blood Pressure [Ri ght Arm] 122/80 130/71 Pulse Oximetry 97 97 Oxygen Delivery Me thod Room Air Room Air Oxygen Flow Rate 02/27/22 07:00 02/27/22 07:00 Temperature 98.3 F Pulse Rate [Pulse Oximeter] 99 99 Respiratory Rate 22 22 Blood Pressure [Ri ght Arm] 130/72 Pulse Oximetry 97 Oxygen Delivery Me thod Room Air Oxygen Flow Rate 0 Labs Labs: Laboratory Results - last 24 hr 02/27/22 02/27/22 09:21 09:21 WBC 9.60 RBC 3.31 L Hgb 9.4 L Hct 30.4 L MCV 92 MCH 28 MCHC 31 L RDW Coeff of Zach 21.2 H Plt Count 404 Neut % (Auto) 76.8 H Lymph % (Auto) 14.4 L [place] % (Auto) 6.3 Eos % (Auto) 1.7 Baso % (Auto) 0.5 Neut # (Auto) 7.40 H Lymph # (Auto) 1.40 [place] # (Auto) 0.60 Eos # (Auto) 0.16 Baso # (Auto) 0.05 Abs Immat Gran (auto) 0.03 Sodium 134 L Potassium 3.5 L Chloride 105 Carbon Dioxide 24 BUN 16 Creatinine 0.6 Estimated Creat Clear 65.10 Estimated GFR 94 Glucose 99 Calcium 7.2 L
[2022-02-27 14:16] LABS: Albumin* 2.3 g/dL (3.3-5.0)
--- NOTE | 2022-02-27 14:17 | CRLHL7_ITS ---
For Patients: As a result of the Century Cures Act, medical imaging exams and procedure reports are released immediately into your electronic medical record. You may view this report before your referring provider. If you have questions, please contact your health care provider. INDICATION: Subluxation of the hip. COMPARISON: Plain film 22 February 2022. Plain film 08 October 2016 TECHNIQUE: Noncontrast images of the pelvis with axial reformats. Coronal and sagittal small field reformats right hip. FINDINGS: End-stage arthrosis of the right hip with chronic appearing [id number] narrowing of the joint and broadening of the acetabular fossa and moderate progressive flattening left femoral head with surrounding joint effusion and stippled mineralized synovium. No acute fracture. Urinary bladder partially decompressed with Rubalcava catheter. Moderate osteoarthritis of the left hip without subluxation. Mild osteoarthritis sacroiliac joints. Diffuse atherosclerotic vascular calcifications. Moderate diffuse subcutaneous soft tissue edema. Moderately prominent dense formed stool through the redundant colon. Circumferential wall thickening of the rectum. Query fecal impaction and stercoral colitis. Decubitus ulcer at the top of the gluteal crease extends nearly to the bone of the coccyx sludge does not show significant erosion. No abscess. IMPRESSION: 1. 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 No acute finding of the right hip. 2. Thickened circumferential thickened near the rectal wall with dense formed stool. Stercoral colitis suspected. Chronic constipation. 3. Moderate osteoarthritis left hip. 4. Midline decubitus ulcer nearly to coccyx bone at the top of the gluteal crease. 5. Large decubitus ulcer to right ischial tuberosity incompletely included in the field of view. Please note that all CT scans at this facility use dose modulation, iterative reconstruction, and/or weight-based dosing when appropriate to reduce radiation dose to as low as reasonably achievable. Dictated by Ronak Brantley MD @ 02/27/2022 3:53:18 PM (Electronically Signed)
[2022-02-27 14:37] LABS: C Reactive Protein* 14.3 mg/dL (0.5-1.0)
--- NOTE | 2022-02-27 15:32 | PC.NURSE ---
Shift Note: Poor appetite this morning, pt did drink a Alireza and a strawberry Ensure. 50% of lunch tray eaten. VS WNL and LS COA. Afebrile. Pt continues to cry out with position change and dressing changes, 2mg Morphine IVP PRN. UA pending and right hip CT pending. Loose stools have decreased, BM x2 this shift. Area separate from wound but near rectum appears macerated, barrier cream applied.
[2022-02-27 15:41] LABS: Appearance Urine Clear (Clear); Bilirubin Urine Negative (Negative); Blood Urine Trace-intact (Negative); Color Urine Yellow (Yellow); Glucose Urine Negative (Negative); Ketones Urine Trace (Negative); Leukocyte Esterase Urine Trace (Negative); Nitrite Urine Negative (Negative); Protein Urine 1+ (Negative); Specific Gravity Urine >= 1.030 (1.000-1.030)
--- NOTE | 2022-02-27 18:53 | PC.NURSE ---
[id number]- Patient denies pain at rest, but with turn and repositioning states pain. Pillows used for offloading. Rubalcava draining and patent. Bandages intact- coccyx ones changed superficially for being soiled with BM. Will medicate prior to full dressing change. He eats bites of supper with encouragement from family. Suzanne is positive- MD notified.
[2022-02-27] MEDS: ROSUVASTATIN CALCIUM 10 MG TABLET 5 MG PO (22:03)
[2022-02-28 03:30] VITALS: BP 129/74; PULSE 87; RESP 16; TEMP 36.4; O2SAT 97
[2022-02-28] MEDS: OXYCODONE 5 MG TABLET PO ×5 (03:30→21:59)
[2022-02-28] MEDS: metroNIDAZOLE 500 MG/100 ML PIGGYBACK IVPB ×3 (05:48→21:28)
--- NOTE | 2022-02-28 06:06 | PC.NURSE ---
END OF SHIFT NOTE: PT FATIGUED, BUT COOPERATIVE. DRESSINGS TO RIGHT LOWER EXTREMITY, SACRUM, BUTTOCKS, BETWEEN SCROTUM AND BASE OF PENIS ALL CHANGED. PT TURNED AND REPOSITIONED. PT ADMINISTERED PRN MORPHINE FOR DRESSING CHANGE. PRN OXY GIVEN FOR DISCOMFORT DURING REPOSITIONING. MARIE PATENT DRAINING DARK CHERI AND YELLOW URINE. PT SLEPT WELL THROUGHOUT SHIFT.
[2022-02-28 07:00] VITALS: BP 127/77; PULSE 82; PULSE 86; RESP 20; TEMP 36.6; O2SAT 97
[2022-02-28 07:01] LABS: Hemoglobin* 8.8 gm/dL (13.5-17.5)
[2022-02-28 07:24] LABS: Chloride* 105 mmol/L (96-114); Potassium* 3.7 mmol/L (3.6-5.1); Sodium* 134 mmol/L (135-149)
[2022-02-28 07:27] LABS: Carbon Dioxide* 26 mmol/L (20-32); Creatinine* 0.6 mg/dL (0.5-1.5); Estimated Glomerular Filt Rate 94 ml/min
[2022-02-28 07:28] LABS: Blood Urea Nitrogen* 22 mg/dL (7-30); Calcium* 7.3 mg/dL (8.4-10.6); Glucose* 91 mg/dL (60-115)
[2022-02-28 07:29] LABS: Magnesium* 1.9 mg/dL (1.5-2.6)
[2022-02-28 08:03] LABS: NT Pro B Type NatriureticPept* 2400 PG/mL (0-450)
[2022-02-28] MEDS: OMEPRAZOLE 20 MG CAPSULE DR PO ×2 (09:09→20:41)
[2022-02-28] MEDS: CYANOCOBALAMIN (VITAMIN B-12) 500 MCG TABLET 1000 MCG PO (09:09)
[2022-02-28] MEDS: ACETAMINOPHEN 500 MG TABLET 1000 MG PO ×3 (09:09→20:41)
[2022-02-28] MEDS: APIXABAN 5 MG TABLET PO ×2 (09:09→20:42)
[2022-02-28] MEDS: MORPHINE 2 MG/ML inj IVP ×3 (09:10→21:59)
[2022-02-28 09:52] LABS: C Reactive Protein* 14.6 mg/dL (0.5-1.0)
--- NOTE | 2022-02-28 09:58 | P.GSPN_ITS ---
Subjective Subjective Date Seen: 02/28/22 Interval history: Patient is stable. He continues to have significant amount of pain with movement or dressing changes. He is getting wet to dry dressing changes b.i.d.. Exam Narrative: Exam Narrative: Right leg: The heel wound with some necrotic tissue at the base which seems to be periosteum. the left lower leg wounds almost all of them are fairly shallow. Will packed the heel wound and the deeper and larger of the right lower leg wounds with wet to dries and cover smaller very shallow wounds with Xeroform. Back: Patient had significant amount of pain when turning him to look good his buttocks and sacral wounds. The right buttocks wound the wound edges have healthy granulation tissue but periosteum overlying the ischial tuberosity has some Dusky necrotic ligamentous tissue. The bone is protruding from the soft tissue for about an inch. The lower back decubitus ulcer with sacrum palpated with soft tissue skin edges appearing healthy. There is some dark periosteum noted over the sacrum. These 2 wounds were packed with wet to dries. The base of the penis wound is fairly sharp row with some slough that was debrided bluntly with gauze today. This will be packed with wet to dry. Const: Vital Signs, click to edit/add: Vital Signs - 24 hr 02/27/22 11:00 02/27/22 15:50 02/27/22 21:50 Temperature 98.4 F 97.9 F 97.8 F Pulse Rate [Left D orsalis Pedis] 89 Pulse Rate [Pulse Oximeter] 91 76 Respiratory Rate 22 18 18 Blood Pressure [[facility] Arm] 134/86 117/55 L 128/72 Pulse Oximetry 96 96 98 Oxygen Delivery Me thod Room Air Room Air Oxygen Flow Rate 0 0 02/27/22 23:35 02/28/22 03:30 02/27/22 23:00 Temperature 97.5 F L 97.6 F Pulse Rate [Left D orsalis Pedis] Pulse Rate [Pulse Oximeter] 82 87 82 Respiratory Rate 18 16 18 Blood Pressure [[facility] Arm] 124/63 129/74 Pulse Oximetry 97 97 Oxygen Delivery Me thod Room Air Room Air Oxygen Flow Rate 0 02/28/22 07:00 Temperature 98 F Pulse Rate [Left D orsalis Pedis] Pulse Rate [Pulse Oximeter] 82 Respiratory Rate 20 Blood Pressure [Ri ght Arm] 127/77 Pulse Oximetry 97 Oxygen Delivery Me thod Room Air Oxygen Flow Rate 0 Progress Note: A&P Assessment and plan (1) Wound infection: Status: Acute (2) Decubitus ulcer of penis, stage 3: Problem details: 86-year-old male admitted to the hospital with multiple right lower extremity and buttocks and sacral decubitus ulcer s/p debridement in the operating room x2. all of the larger and deeper wounds will be packed with wet to dry. The shallower once in the right lower extremity will be covered with Xeroform. Will continue with b.i.d. dressing changes. The hospitalist is planning to add fentanyl patch for pain control since patient continues to have a lot of pain with movement. Status: Acute (3) Pressure ulcer of right heel, unspecified stage: Status: Acute
[2022-02-28] MEDS: SODIUM CHLORIDE 0.9 % (FLUSH) 10 ML SYRINGE 5 ML IVF ×3 (10:07→20:42)
[2022-02-28] MEDS: fentaNYL 100 MCG/2 ML inj 25 MCG IVP (10:07)
[2022-02-28] MEDS: fentaNYL 25 MCG/HR PATCH 1 PATCH TRANSDERMA (10:48)
[2022-02-28 11:00] VITALS: BP 100/51; PULSE 86; RESP 20; TEMP 36.7; O2SAT 96
--- NOTE | 2022-02-28 11:29 | P.IMPN_ITS ---
Progress Note: A&P Assessment and plan (1) Pressure ulcer of sacral region: Problem details: Upper sacrum, stage IV Low right buttock, stage IV Status post 2nd debridement by surgery Day 7 of IV Abx Status: Acute (2) Pressure ulcer of right heel, unspecified stage: Problem details: continue current cares which include wet-dry BID changes and abx Status: Acute (3) Decubitus ulcer of penis, stage 3: Problem details: wet to dry dressing change BID continue current cares Day 7 of IV ABX Status: Acute (4) Diastolic heart failure: Problem details: BNP is elevated and remains elevated. Status: Chronic (5) Hypertension: Problem details: Blood pressure currently low. Hold blood pressure medicine Status: Chronic (6) Malnutrition: Problem details: Moderate protein calorie malnutrition as evidenced by skin breakdown, albumin of 3 on 02/22/2022 and gaunt appearance of face with generalized muscular atrophy of extremity Status: Acute (7) Acute on chronic anemia: Problem details: slow GI blood loss and in combination poor nutrition/poor replacement continue monitoring high risk for VTE; continue eliquis for now; may stop if hemoglobin continues to drop Status: Acute (8) Permanent atrial fibrillation: Problem details: OAC. Rate controlled. Status: Chronic (9) Primary osteoarthritis of right hip: Problem details: CT confirmed no subluxation or dislocation continue opioid therapy reviewed ortho consultation from January; not a surgical candidate with open sores. Status: Acute (10) Chronic pain: Problem details: Requiring ongoing opioid therapy to manage the pain from his right hip as well as his ulcers. 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 In the last 4 months he has been declining from relatively independent to completely dependent. In reviewing the records it appears that patient has had decline month by month with recurrent hospitalizations and not made progress with therapy when he has been in care home facilities. We have set a goal for him to get strong enough to transfer. Prognosis for that is guarded Status: Acute (13) Debility: Problem details: Fairly severe. Likely to need detention long-term Status: Acute Subjective Date Seen: 02/28/22 Interval history: Daily Progress Note - Hospital Medicine Day #: 7 Day 7 of various IV abx: Rocephin, ceftazidime, vancomycin, Zosyn and now we are on day 4 of Flagyl and Levaquin CC: Hard for me to move, my pain is intense with most movements. OVERNIGHT UPDATES FROM STAFF & MED, LAB, IMAGING UPDATES Vital signs are all reviewed. He is not on oxygen and his blood pressure pulse respiratory rate unremarkable. No leukocytosis Hemoglobin 8.8, aviva is 6.0 after his 1st debridement. Chemistries are all unremarkable Magnesium is normal CRP is down trending 19.8-14.6 BNP is essentially stable [id number] CT Right Hip (last evening) 1. 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 No acute finding of the right hip. 2. Thickened circumferential thickened near the rectal wall with dense formed stool. Stercoral colitis suspected. Chronic constipation. 3. Moderate osteoarthritis left hip. 4. Midline decubitus ulcer nearly to coccyx bone at the top of the gluteal crease. 5. Large decubitus ulcer to right ischial tuberosity incompletely included in the field of view. Reviewing cultures: No MRSA. Bone shows no growth. Gram-negative rods in the wound culture from the right leg. Serratia odorifera resistant to cefazolin, cefoxitin Gram-negative rods, E coli in the buttock Blood culture negative Urine growing Pseudomonas previously Date of procedure: 02/25/22 Type of Procedure: 1. Debridement of coccyx pressure ulcer with irrigation Tendon was exposed, but not overtly necrotic. Bone was not exposed or involved. 2. Debridement of right buttock pressure ulcer with irrigation Dissection did involve necrotic muscle and tendon, with bone exposed. The bone did not appear necrotic 3. Debridement of right heel pressure ulcer with irrigation - the injury did probe to bone, but there is no evidence of bone necrosis. Review of Systems: See subjective Cardiac: No new chest pain/pressure/palpitations. Respiratory: no new dyspnea. GI: No abdominal bloating Objective: Awake. Coherent. Seems to have some moderate amount insight. Vitals: see above Lungs: Clear. Cardiac: S1S2. bedside during bath and wound care; reviewed findings bedside with Dr. Cronin (her description which I agree with) Right leg: The heel wound with some necrotic tissue at the base which seems to be periosteum. the left lower leg wounds almost all of them are fairly shallow. Will packed the heel wound and the deeper and larger of the right lower leg wounds with wet to dries and cover smaller very shallow wounds with Xeroform. Back: Patient had significant amount of pain when turning him to look good his buttocks and sacral wounds. The right buttocks wound the wound edges have healthy granulation tissue but periosteum overlying the ischial tuberosity has some Dusky necrotic ligamentous tissue. The bone is protruding from the soft tissue for about an inch. The lower back decubitus ulcer with sacrum palpated with soft tissue skin edges appearing healthy. There is some dark periosteum noted over the sacrum. These 2 wounds were packed with wet to dries. The base of the penis wound is fairly sharp row with some slough that was debrided bluntly with gauze today. This will be packed with wet to dry. Disposition/Potential discharge - care home is our goal secondary to his very limited mobility and need for chronic wound care. Total time is 35 minutes with greater than 50% spent in counseling and coordination of care. Exam Const: Vital Signs, click to edit/add: Vital Signs - 24 hr 02/27/22 15:50 02/27/22 21:50 02/27/22 23:35 Temperature 97.9 F 97.8 F 97.5 F L Pulse Rate [Left D orsalis Pedis] 89 Pulse Rate [Pulse Oximeter] 76 82 Respiratory Rate 18 18 18 Blood Pressure [Le ft Arm] Blood Pressure [Ri ght Arm] 117/55 L 128/72 124/63 Pulse Oximetry 96 98 97 Oxygen Delivery Me thod Room Air Room Air Oxygen Flow Rate 0 0 02/28/22 03:30 02/27/22 23:00 02/28/22 07:00 Temperature 97.6 F 98 F Pulse Rate [Left D orsalis Pedis] Pulse Rate [Pulse Oximeter] 87 82 82 Respiratory Rate 16 18 20 Blood Pressure [Le ft Arm] Blood Pressure [Ri ght Arm] 129/74 127/77 Pulse Oximetry 97 97 Oxygen Delivery Me thod Room Air Room Air Oxygen Flow Rate 0 02/28/22 07:00 02/28/22 11:00 Temperature 98.1 F Pulse Rate [Left D orsalis Pedis] Pulse Rate [Pulse Oximeter] 86 86 Respiratory Rate 20 20 Blood Pressure [Le ft Arm] 100/51 L Blood Pressure [Ri ght Arm] Pulse Oximetry 96 Oxygen Delivery Me thod Room Air Oxygen Flow Rate 0 Labs Labs: Laboratory Results - last 24 hr 02/27/22 02/27/22 02/28/22 09:21 14:24 06:24 Hgb 8.8 L Sodium Potassium Chloride Carbon Dioxide BUN Creatinine Estimated Creat Clear Estimated GFR Glucose Calcium Magnesium C-Reactive Protein 14.3 H NT-Pro-B Natriuret Pep Albumin 2.3 L TSH Urine Color Yellow Urine Appearance Clear Urine pH 6.0 Ur Specific [place] >= 1.030 Urine Protein 1+ A Urine Glucose (UA) Negative Urine Ketones Trace A Urine Blood Trace-intact A Urine Nitrite Negative Urine Bilirubin Negative Urine Urobilinogen 2.0 A Ur Leukocyte Esterase Trace A Urine RBC 5-10 A Urine WBC 5-10 A Urine WBC Clumps None Ur Squamous Epith Cells None Urine Bacteria None 02/28/22 02/28/22 06:24 06:24 Hgb Sodium 134 L Potassium 3.7 Chloride 105 Carbon Dioxide 26 BUN 22 Creatinine 0.6 Estimated Creat Clear 65.10 Estimated GFR 94 Glucose 91 Calcium 7.3 L Magnesium 1.9 C-Reactive Protein 14.6 H NT-Pro-B Natriuret Pep 2400 H Albumin TSH 3.680 Urine Color Urine Appearance Urine pH Ur Specific [place] Urine Protein Urine Glucose (UA) Urine Ketones Urine Blood Urine Nitrite Urine Bilirubin Urine Urobilinogen Ur Leukocyte Esterase Urine RBC Urine WBC Urine WBC Clumps Ur Squamous Epith Cells Urine Bacteria
--- NOTE | 2022-02-28 11:29 | PC.NURSE ---
Bed bath and hair wash with dressing changes this morning. Increased pain with movement and dressing changes despite pre-medication with 4mg Morphine IVP and 5mg Oxycodone PO. Additional 25mcg Fentanyl given IVP and 25mcg patch applied to left shoulder. Pt now appears to be resting comfortably on right lateral side.
[2022-02-28 12:25] LABS: Albumin* 2.2 g/dL (3.3-5.0)
[2022-02-28] MEDS: LACTOBACILLUS ACIDOPHILUS 1 TABLET 2 TAB PO ×2 (13:16→18:11)
[2022-02-28] MEDS: FUROSEMIDE 40 MG TABLET PO (13:16)
[2022-02-28 15:00] VITALS: BP 108/69; PULSE 79; RESP 20; TEMP 36.4; O2SAT 99
[2022-02-28] MEDS: ALBUMIN HUMAN 25% 100 ML VIAL IV (16:48)
--- NOTE | 2022-02-28 19:57 | PC.NURSE ---
Shift Note [id number]: Improved appetite today, Alireza supplement x2 and Ensure x1 plus he is eating 50-75% of meal trays. VS WNL and LS COA. Full bed bath and hair washing done with dressing changes this morning. Dr. Cronin modified dressing instructions to all wet-to-dry except for open area on right esquivel will continue with xeroform. Pt continues to cry out with pain during repositioning and dressing changes. Fentanyl patch 25mcg added per MD and placed on left shoulder.
[2022-02-28 20:06] VITALS: BP 117/69; PULSE 84; RESP 18; TEMP 36.6; O2SAT 97
[2022-02-28 23:00] VITALS: PULSE 81; RESP 16
[2022-02-28] MEDS: ROSUVASTATIN CALCIUM 10 MG TABLET 5 MG PO (23:03)
[2022-03-01] VITALS: BP 124/60; PULSE 81; RESP 16; TEMP 36.4; O2SAT 95
[2022-03-01] MEDS: OXYCODONE 5 MG TABLET PO ×3 (02:56→12:00)
[2022-03-01 03:02] VITALS: BP 123/65; PULSE 82; RESP 16; TEMP 36.3; O2SAT 98
[2022-03-01] MEDS: SODIUM CHLORIDE 0.9 % (FLUSH) 10 ML SYRINGE 5 ML IVF ×4 (05:24→20:46)
[2022-03-01] MEDS: metroNIDAZOLE 500 MG/100 ML PIGGYBACK IVPB ×2 (05:24→13:16)
--- NOTE | 2022-03-01 05:42 | PC.NURSE ---
[id number] Pt rested between turns/repo and cares, rates pain 0/10 at rest and 10/10 with repositioning and wound cares. pleasant and cooperative. dunham patent and draining.
[2022-03-01 08:00] VITALS: BP 127/59; PULSE 81; RESP 20; TEMP 36.6; O2SAT 97
[2022-03-01] MEDS: LACTOBACILLUS ACIDOPHILUS 1 TABLET 2 TAB PO ×2 (08:44→12:00)
[2022-03-01] MEDS: OMEPRAZOLE 20 MG CAPSULE DR PO ×2 (08:44→20:45)
[2022-03-01] MEDS: ACETAMINOPHEN 500 MG TABLET 1000 MG PO ×3 (08:44→20:45)
[2022-03-01] MEDS: APIXABAN 5 MG TABLET PO (08:44)
[2022-03-01] MEDS: FUROSEMIDE 40 MG TABLET PO (08:44)
[2022-03-01] MEDS: CYANOCOBALAMIN (VITAMIN B-12) 500 MCG TABLET 1000 MCG PO (08:44)
[2022-03-01 10:06] LABS: Ionized Calcium* 1.08 mmol/L (1.11-1.30); Lactate* 0.9 mmol/L (0.5-1.9)
[2022-03-01 10:09] LABS: Hemoglobin* 9.9 gm/dL (13.5-17.5)
[2022-03-01 11:21] VITALS: PULSE 81; RESP 20
[2022-03-01 11:21] LABS: Chloride* 104 mmol/L (96-114)
[2022-03-01 11:22] LABS: Potassium* 3.7 mmol/L (3.6-5.1); Sodium* 133 mmol/L (135-149)
[2022-03-01 11:24] LABS: Creatinine* 0.6 mg/dL (0.5-1.5); Estimated Glomerular Filt Rate 94 ml/min; Gamma Glutamyl Transpeptidase* 24 U/L (8-55)
[2022-03-01 11:25] LABS: Blood Urea Nitrogen* 21 mg/dL (7-30); Calcium* 7.6 mg/dL (8.4-10.6); Carbon Dioxide* 24 mmol/L (20-32); Glucose* 99 mg/dL (60-115)
[2022-03-01 11:34] LABS: NT Pro B Type NatriureticPept* 2190 PG/mL (0-450)
[2022-03-01] MEDS: 0.9 % SODIUM CHLORIDE 250 ml IV (12:00)
[2022-03-01 12:13] VITALS: BP 108/47; PULSE 84; RESP 15; TEMP 36.8; O2SAT 95
[2022-03-01 13:04] LABS: C Reactive Protein* 12.7 mg/dL (0.5-1.0)
--- NOTE | 2022-03-01 13:21 | PC.SOCIAL ---
Discharge planning: Per MD, family is requesting hospice informational meeting for today. Called dtr who is interested in meeting with [facility] for an inforamtional meeting. Called [facility] and spoke with Uma who states they can meet with pt's dtr at the hospital today at 3:00. Called dtr Yvette who can be at the hospital at 3:00 today for a meeting with hospice. She states she thinks he needs SNF placement for the hospice care and requested. [facility] or [facility] for placement. Dtr is aware [facility] have both declined pt for admit. core worker to follow up as needed.
--- NOTE | 2022-03-01 13:38 | PM.IMPN1 ---
Progress Note: A&P Assessment and plan (1) Pressure ulcer of sacral region: Problem details: Upper sacrum, stage IV Low right buttock, stage IV Status post 2nd debridement by surgery Day 8 of IV Abx will pursue comfort cares now Status: Acute (2) Pressure ulcer of right heel, unspecified stage: Problem details: Status: Acute (3) Decubitus ulcer of penis, stage 3: Problem details: avoid painful dressing changes - pursuing hospice. Status: Acute (4) Diastolic heart failure: Problem details: BNP is elevated and remains elevated. Status: Chronic (5) Hypertension: Problem details: Blood pressure currently low. Hold blood pressure medicine Status: Chronic (6) Malnutrition: Problem details: Moderate protein calorie malnutrition as evidenced by skin breakdown, albumin of 3 on 02/22/2022 and gaunt appearance of face with generalized muscular atrophy of extremity Status: Acute (7) Acute on chronic anemia: Problem details: slow GI blood loss and in combination poor nutrition/poor replacement continue monitoring high risk for VTE; continue eliquis for now; may stop if hemoglobin continues to drop Status: Acute (8) Permanent atrial fibrillation: Problem details: OAC. Rate controlled. Status: Chronic (9) Primary osteoarthritis of right hip: Problem details: CT confirmed no subluxation or dislocation continue opioid therapy reviewed ortho consultation from January; not a surgical candidate with open sores. Status: Acute (10) Chronic pain: Problem details: Requiring ongoing opioid therapy to manage the pain from his right hip as well as his ulcers. 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 In the last 4 months he has been declining from relatively independent to completely dependent. In reviewing the records it appears that patient has had decline month by month with recurrent hospitalizations and not made progress with therapy when he has been in long term facilities. We have set a goal for him to get strong enough to transfer. Prognosis for that is guarded Status: Acute (13) Debility: Problem details: severe; appropriate for hospice Status: Acute Subjective Date Seen: 03/01/22 Interval history: Daily Progress Note - Hospital Medicine Day #: 8 Day 8 of various IV abx: Rocephin, ceftazidime, vancomycin, Zosyn and now we are on day 5 of Flagyl and Levaquin CC: Hard for me to move, my pain is intense with most movements. OVERNIGHT UPDATES FROM STAFF & MED, LAB, IMAGING UPDATES Vital signs are all reviewed. He is not on oxygen and his blood pressure is soft with normal HR, RR, O2 Sats Hemoglobin is up to 9.9 Sodium is low normal CRP has down trended from 14.6-12.7 BNP has down trended from 8415-6168 Albumin remains low at 2.2 Reviewing cultures: No MRSA. Bone shows no growth. Gram-negative rods in the wound culture from the right leg. Serratia odorifera resistant to cefazolin, cefoxitin Gram-negative rods, E coli in the buttock Blood culture negative Urine growing Pseudomonas previously Date of procedure: 02/25/22 Type of Procedure: 1. Debridement of coccyx pressure ulcer with irrigation Tendon was exposed, but not overtly necrotic. Bone was not exposed or involved. 2. Debridement of right buttock pressure ulcer with irrigation Dissection did involve necrotic muscle and tendon, with bone exposed. The bone did not appear necrotic 3. Debridement of right heel pressure ulcer with irrigation - the injury did probe to bone, but there is no evidence of bone necrosis. Review of Systems: remains weak and in general discomfort, w/increased pain during turns and wound care. See subjective Cardiac: No new chest pain/pressure/palpitations. Respiratory: no new dyspnea. GI: No abdominal bloating Objective: Awake. Coherent. Seems to have some moderate amount insight. Vitals: see above Lungs: Clear. Cardiac: S1S2. wounds not addressed today; RN to keep same schedule. Disposition/Potential discharge - pt, myself, Yvette - daughter - discussed goals of care; pt will pursue Hospice. Total time is 35 minutes with greater than 50% spent in counseling and coordination of care. Exam Const: Vital Signs, click to edit/add: Vital Signs - 24 hr 02/28/22 15:00 02/28/22 15:00 02/28/22 20:06 Temperature 97.6 F 97.8 F Pulse Rate [Pulse Oximeter] 79 79 84 Respiratory Rate 20 20 18 Blood Pressure [Le ft Arm] Blood Pressure [Ri ght Arm] 108/69 117/69 Pulse Oximetry 99 97 Oxygen Delivery Me thod Room Air Room Air Oxygen Flow Rate 0 09/11/22 23:00 03/01/22 00:00 03/01/22 03:02 Temperature 97.6 F 97.4 F L Pulse Rate [Pulse Oximeter] 81 81 82 Respiratory Rate 16 16 16 Blood Pressure [Le ft Arm] 124/60 Blood Pressure [Ri ght Arm] 123/65 Pulse Oximetry 95 98 Oxygen Delivery Me thod Room Air Room Air Oxygen Flow Rate 0 0 03/01/22 08:00 03/01/22 11:21 03/01/22 12:13 Temperature 97.8 F 98.2 F Pulse Rate [Pulse Oximeter] 81 81 84 Respiratory Rate 20 20 15 Blood Pressure [Le ft Arm] 108/47 L Blood Pressure [Ri ght Arm] 127/59 L Pulse Oximetry 97 95 Oxygen Delivery Me thod Room Air Room Air Oxygen Flow Rate 0 Labs Labs: Laboratory Results - last 24 hr 03/01/22 03/01/22 03/01/22 09:57 09:57 09:57 Hgb 9.9 L Sodium 133 L Potassium 3.7 Chloride 104 Carbon Dioxide 24 BUN 21 Creatinine 0.6 Estimated Creat Clear 65.10 Estimated GFR 94 Glucose 99 Lactate 0.9 Calcium 7.6 L Ionized Calcium Claire 1.08 L Magnesium 2.0 GGT 24 C-Reactive Protein 12.7 H NT-Pro-B Natriuret Pep 2190 H
[2022-03-01] MEDS: fentaNYL 50 MCG/HR PATCH 1 PATCH TRANSDERMA (15:06)
[2022-03-01] MEDS: MORPHINE 10 MG/0.5 ML ORAL SOLN PO ×2 (16:31→23:01)
--- NOTE | 2022-03-01 17:43 | PC.NURSE ---
PATIENT PLEASANT AND COOPERATIVE, ALERT AND ORIENTED, A LOT OF PAIN THE MORNING PRN OXYCODONE GIVEN WITH MINIMAL RELIEF, MD AWARE AND IN TO SEE PATIENT, PATIENT AND FAMILY MOVE TO COMFORT CARES, PRN MORPHINE GIVEN WITH RELIEF, PATIENT DECLINED DRESSING CHANGE AND PER MD ONLY DO DRESSING CHANGE IF SATURATED OR PER PATIENT REQUEST FOR COMFORT, TURN AND REPO PATIENT TOLERATED, TOLERATING REGULAR DIET EATING 75-100 OF MEALS.
[2022-03-02] MEDS: MORPHINE 10 MG/0.5 ML ORAL SOLN PO ×5 (05:35→21:50)
--- NOTE | 2022-03-02 06:51 | PC.NURSE ---
SHIFT NOTE 19-07: Pt is cooperative, turned and repositioned Q2H with 2 assist. PRN Morphine given x2 this shift, pt reports good relief. Dressings are dry and intact. Rubalcava patent and draining.
[2022-03-02] MEDS: ACETAMINOPHEN 500 MG TABLET 1000 MG PO ×2 (09:10→20:20)
[2022-03-02] MEDS: OMEPRAZOLE 20 MG CAPSULE DR PO ×2 (09:10→20:20)
[2022-03-02] MEDS: SODIUM CHLORIDE 0.9 % (FLUSH) 10 ML SYRINGE 5 ML IVF ×2 (09:14→20:21)
--- NOTE | 2022-03-02 12:04 | PM.GSPN ---
Subjective Subjective Date Seen: 03/02/22 Interval history: Patient is doing ok. Continues to have pain with any sort of positioning and dressing changes. Has transitioned to hospice. Last BM was yesterday, several soft stools per nurse. Last dressing change was yesterday. Exam Narrative: Exam Narrative: Gen: alert and oriented, lying in bed comfortably Wounds: RLE with dressings taken down. Heel wound with necrosis of overlying periosteum and some necrotic subcutaneous tissue. No alejandra purulence. RLE with scaly dry skin. +2 edema. Lateral and medial skin ulceration to subcutaneous tissues R buttock with deep wound and exposed bone. Necrosis to overlying periosteum some granulation tissue within wound bed. No alejandra purulence. Coccyx with some necorsis to the central portion of the wound, some fibrinous exudate to wound bed, minimal granulation tissue. No alejandra purulence. Const: Vital Signs, click to edit/add: Vital Signs - 24 hr 03/01/22 12:13 Temperature 98.2 F Pulse Rate [Pulse Oximeter] 84 Respiratory Rate 15 Blood Pressure [Le ft Arm] 108/47 L Pulse Oximetry 95 Oxygen Delivery Me thod Room Air Progress Note: A&P Assessment and plan (1) Decubitus ulcer of penis, stage 3: Problem details: Status: Acute Assessment and Plan: Xeroform and outer dressing of kelix. Change every other day, or more often as needed for soilage. Patient is palliative cares. (2) Pressure ulcer of right heel, unspecified stage: Problem details: Status: Acute Assessment and Plan: Xeroform and outer dressing of kerlix. Change every other day, or more often as needed for drainage. (3) Pressure ulcer of sacral region: Status: Acute Assessment and Plan: Wet to dry dressing changes daily, or more often as needed. (4) Lower extremity ulceration: Status: Acute Assessment and Plan: Elevate legs. Compression stocking to LLE. Xeroform to open areas and outer kerlix, change every other day. Plan Patient is pursuing palliation for his wounds. Dressings as described above. Other cares per hospitalist. Surgery to sign off.
--- NOTE | 2022-03-02 12:26 | PM.IMPN1 ---
Progress Note: A&P Assessment and plan (1) Has end of life care plan: Problem details: We are looking for jail/comfort care/hospice placement. Comfort cares here while inpatient. Status: Acute (2) Decubital ulcer: Problem details: Right heel, coccyx, right hip, penile Has received IV antibiotics and wound care with surgical debridement. Family conference with the patient and family yesterday, 03/01/2022, we elected to do comfort cares and hospice. Status: Acute (3) Chronic pain: Problem details: Requiring ongoing opioid therapy to manage the pain from his right hip as well as his ulcers. Starting fentanyl 25mcg transdermal 02/28/22, increased to 50 mcg on 03/01/22 Status: Acute (4) Primary osteoarthritis of right hip: Problem details: CT confirmed no subluxation or dislocation continue opioid therapy reviewed ortho consultation from January; not a surgical candidate with open sores. 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 In the last 4 months he has been declining from relatively independent to completely dependent. In reviewing the records it appears that patient has had decline month by month with recurrent hospitalizations and not made progress with therapy when he has been in jail facilities. We have set a goal for him to get strong enough to transfer. Prognosis for that is guarded Status: Acute (7) Permanent atrial fibrillation: Problem details: OAC. Rate controlled. Status: Chronic (8) CKD (chronic kidney disease), stage III: Problem details: Stable Status: Chronic (9) Malnutrition: Problem details: Moderate protein calorie malnutrition as evidenced by skin breakdown, albumin of 3 on 02/22/2022 and gaunt appearance of face with generalized muscular atrophy of extremity Status: Acute Subjective Date Seen: 03/02/22 Interval history: Daily Progress Note - Hospital Medicine Day #: 9 Day 8 of various IV abx: Rocephin, ceftazidime, vancomycin, Zosyn and now we are on day 5 of Flagyl and Levaquin CC: Stage IV ulcers; end of life care; generalized weak OVERNIGHT UPDATES FROM STAFF & MED, LAB, IMAGING UPDATES On comfort cares; no respiratory distress Reviewing cultures: No MRSA. Bone shows no growth. Gram-negative rods in the wound culture from the right leg. Serratia odorifera resistant to cefazolin, cefoxitin Gram-negative rods, E coli in the buttock Blood culture negative Urine growing Pseudomonas previously Date of procedure: 02/25/22 Type of Procedure: 1. Debridement of coccyx pressure ulcer with irrigation Tendon was exposed, but not overtly necrotic. Bone was not exposed or involved. 2. Debridement of right buttock pressure ulcer with irrigation Dissection did involve necrotic muscle and tendon, with bone exposed. The bone did not appear necrotic 3. Debridement of right heel pressure ulcer with irrigation - the injury did probe to bone, but there is no evidence of bone necrosis. Review of Systems: remains weak and in general discomfort, w/increased pain during turns and wound care. See subjective Cardiac: No new chest pain/pressure/palpitations. Respiratory: no new dyspnea. GI: No abdominal bloating Objective: Awake. Coherent. Seems to have some moderate amount insight. Vitals: see above Lungs: Clear. Cardiac: S1S2. wounds not addressed today Disposition/Potential discharge - pt, myself, Yvette - daughter - discussed goals of care; pt will pursue Hospice. Total time is 35 minutes with greater than 50% spent in counseling and coordination of care. Labs Labs: Laboratory Results - last 24 hr 03/01/22 09:57 C-Reactive Protein 12.7 H
--- NOTE | 2022-03-02 15:45 | PC.SOCIAL ---
Discharge planning- Phone call to patient's daughter, Yvette. Discussed discharge options. Provided information that since Pt does not have a skilled need for SNF, insurance will likely not cover SNF room and board and pt would potentially be private pay for room and board. Provided approximate information on how much is needed up front and approximately how much a month for SNF. Informed that [facility] is willing to assess for possible admission if the family would like to move forward. Provided option for [facility] in [place]. Yvette stated that they want what is best for Pt and what would be most comfortable. Yvette asked how pt would get to another facility. Discussed possible option of non-emergency ambulance transfer. Yvette requested social work department to call her significant other, Trevor Luna, for a decision on what facility to move forward with. Yvette would like Trevor to make the final decision. Made a phone call to Trevor Luna at [phone]. Explained all that was discussed with daughter, Yvette. Trevor states that he thinks it is best to look at [facility]. Informed Trevor that social work department will fax initial information to [facility] for assessment of possible admission. Sent initial information packet of pt information for possible admission to [facility] in [place]. .
--- NOTE | 2022-03-02 17:02 | PC.NURSE ---
PATIENT PLEASANT AND COOPERATIVE, TURN AND REPO Q2H, PATIENT TOLERATING WELL WITH PRN ROXANOL, DRESSINGS CHANGED WITH SURGEON TODAY PATIENT TOLERATED FAIRLY EXPRESSED INCREASED PAIN WITH COCCYX DRESSING CHANGE BUT VERBALIZED BETTER THAN PREVIOUS CHANGES, PAIN IN RIGHT HIP WITH MOVEMENT AND COCCYX WITH DRESSING CHANGES, TOLERATED REGULAR DIET EATING 100% OF MEALS, MARIE PATENT AND DRAINING, FAMILY VISITED THIS MORNING.
--- NOTE | 2022-03-03 05:07 | PC.NURSE ---
Took over pt at 0220, resting comfortably in room, declined being repositioned, stated he was comfortable and didn't want to move.
[2022-03-03] MEDS: MORPHINE 10 MG/0.5 ML ORAL SOLN PO ×4 (05:40→20:29)
--- NOTE | 2022-03-03 08:15 | PC.SOCIAL ---
Spoke with the nurse at [facility] and pt can return to their care on quarantine as long as he is a one assist. They can assist with toileting, dressing, and bathing if pt. allows and wants to pay for it.
[2022-03-03] MEDS: OMEPRAZOLE 20 MG CAPSULE DR PO ×2 (08:58→20:30)
[2022-03-03] MEDS: SODIUM CHLORIDE 0.9 % (FLUSH) 10 ML SYRINGE 5 ML IVF ×2 (08:59→20:31)
[2022-03-03] MEDS: SENNOSIDES/DOCUSATE TABLET 4 TAB PO ×2 (08:59→20:30)
[2022-03-03] MEDS: ACETAMINOPHEN 500 MG TABLET 1000 MG PO ×3 (08:59→20:30)
--- NOTE | 2022-03-03 10:21 | PC.SOCIAL ---
Phone call to Kim at [facility] at [phone]. Kim is working on the assessment for potential admission to the facility. Kim had a few additional questions about wound care dressing and initial information. Kim will call [facility] Social Work Department back with a answer.
--- NOTE | 2022-03-03 14:10 | PM.IMPN1 ---
Progress Note: A&P Assessment and plan (1) Has end of life care plan: Problem details: [place] [facility] care/hospice placement. Comfort cares here while inpatient. Status: Acute (2) Decubital ulcer: Problem details: Right heel, coccyx, right hip, penile Has received IV antibiotics and wound care with surgical debridement. Family conference with the patient and family yesterday, 03/01/2022, we elected to do comfort cares and hospice. Status: Acute (3) Chronic pain: Problem details: Requiring ongoing opioid therapy to manage the pain from his right hip as well as his ulcers. Starting fentanyl 25mcg transdermal 02/28/22, increased to 50 mcg on 03/01/22 Status: Acute (4) Primary osteoarthritis of right hip: Problem details: CT confirmed no subluxation or dislocation continue opioid therapy reviewed ortho consultation from January; not a surgical candidate with open sores. 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 In the last 4 months he has been declining from relatively independent to completely dependent. In reviewing the records it appears that patient has had decline month by month with recurrent hospitalizations and not made progress with therapy when he has been in [place] [facility] facilities. We have set a goal for him to get strong enough to transfer. Prognosis for that is guarded Status: Acute (7) Permanent atrial fibrillation: Problem details: OAC. Rate controlled. Status: Chronic (8) CKD (chronic kidney disease), stage III: Problem details: Stable Status: Chronic (9) Malnutrition: Problem details: Moderate protein calorie malnutrition as evidenced by skin breakdown, albumin of 3 on 02/22/2022 and gaunt appearance of face with generalized muscular atrophy of extremity Status: Acute Subjective Date Seen: 03/03/22 Interval history: Daily Progress Note - Hospital Medicine Day #: 10 s/p 8 of various IV abx: Rocephin, ceftazidime, vancomycin, Zosyn and s/p 5 days of Flagyl and Levaquin s/p CC: Stage IV ulcers; end of life care; generalized weak OVERNIGHT UPDATES FROM STAFF & MED, LAB, IMAGING UPDATES On comfort cares; no respiratory distress Reviewing cultures: No MRSA. Bone shows no growth initially, this is now showing small amount of gram neg rods. Gram-negative rods in the wound culture from the right leg. Serratia odorifera resistant to cefazolin, cefoxitin Gram-negative rods, E coli in the buttock Blood culture negative Urine growing Pseudomonas previously Date of procedure: 02/25/22 Type of Procedure: 1. Debridement of coccyx pressure ulcer with irrigation Tendon was exposed, but not overtly necrotic. Bone was not exposed or involved. 2. Debridement of right buttock pressure ulcer with irrigation Dissection did involve necrotic muscle and tendon, with bone exposed. The bone did not appear necrotic 3. Debridement of right heel pressure ulcer with irrigation - the injury did probe to bone, but there is no evidence of bone necrosis. Review of Systems: remains weak and in general discomfort, w/increased pain during turns and wound care. See subjective Cardiac: No new chest pain/pressure/palpitations. Respiratory: no new dyspnea. GI: No abdominal bloating Objective: Awake. Coherent. Seems to have some moderate amount insight. Vitals: see above Lungs: Clear. Cardiac: S1S2. wounds not addressed today Disposition/Potential discharge - pt, myself, Yvette - daughter - discussed goals of care; pt will pursue Hospice. Total time is 35 minutes with greater than 50% spent in counseling and coordination of care.
[2022-03-03 19:10] VITALS: TEMP 36.9
--- NOTE | 2022-03-03 19:51 | PC.NURSE ---
shift note: pt medicated with 10 mg morphine oral prior to activity due to increased pain. Pt tolerating diet. dunham patent
[2022-03-03 20:30] VITALS: TEMP 36.9
[2022-03-04] MEDS: MORPHINE 10 MG/0.5 ML ORAL SOLN PO ×3 (00:21→21:30)
--- NOTE | 2022-03-04 06:46 | PC.NURSE ---
Alert and oriented x3. On room air and tolerating cares fine. Received PRN Morphine x3 overnight. No moaning with repositioning; patient looked comfortable. Wound dressings changed due to soaking. No BM this shift. All medications administered as per orders
[2022-03-04] MEDS: ACETAMINOPHEN 500 MG TABLET 1000 MG PO ×3 (08:41→21:29)
[2022-03-04] MEDS: SENNOSIDES/DOCUSATE TABLET 4 TAB PO ×2 (08:41→21:29)
[2022-03-04] MEDS: OMEPRAZOLE 20 MG CAPSULE DR PO ×2 (08:41→21:29)
[2022-03-04] MEDS: SODIUM CHLORIDE 0.9 % (FLUSH) 10 ML SYRINGE 5 ML IVF ×2 (08:42→21:30)
--- NOTE | 2022-03-04 10:17 | PC.SOCIAL ---
Phone call from Kim at [facility] in [place] ([phone]). Kim informed that they do have an open bed but she would like to ask more questions to Nursing regarding pt nursing care. Provided Kim with the Med/Surg. phone number to get a nurses report. Made a follow up phone call back to Kim after the nurse report. Kim stated she will call back with a admission decision as she would like to consult with the team due to the pt's wounds and making sure that staff can meet the pt's needs.
--- NOTE | 2022-03-04 12:22 | PC.SOCIAL ---
Follow up phone call to Kim Chawla at [facility]. Left a voicemail to call [facility] Social Work Department back regarding a decision on admission for pt.
[2022-03-04] MEDS: fentaNYL 50 MCG/HR PATCH 1 PATCH TRANSDERMA (14:34)
--- NOTE | 2022-03-04 15:14 | PC.SOCIAL ---
Phone call from Jo at [facility] for [facility] at [phone]. Jo stated that Pt has been accepted for admission at [facility]. Pt can be admitted tomorrow (03/05/22) before 12:00 pm. Jo asked if transport can be set up. This worker will talk with the charge nurse to get a transport set. Jo informed that Pt will need a negative Covid swab before admission and the results can be faxed to [phone]. Jo asked if the family was aware of the payment that is needed. This worker informed that the family is aware that they have to private pay a fee up front and then a fee per day. [facility] will reach out to the family. This worker provided the information to charge nurse, Latisha. Made a phone call to Pt's daughter, Yvette. Provided an update to Yvette on pt being accepted to [facility]. Informed Yvette that the facility will reach out to her for admissions paperwork and payment.
--- NOTE | 2022-03-04 15:26 | P.IMPN_ITS ---
Progress Note: A&P Assessment and plan (1) Has end of life care plan: Problem details: Hospice House in [place] tomorrow Status: Acute (2) Decubital ulcer: Problem details: Right heel, coccyx, right hip, penile Has received IV antibiotics and wound care with surgical debridement. Family conference with the patient and family yesterday, 03/01/2022, we elected to do comfort cares and hospice. Status: Acute (3) Chronic pain: Problem details: Requiring ongoing opioid therapy to manage the pain from his right hip as well as his ulcers. Starting fentanyl 25mcg transdermal 02/28/22, increased to 50 mcg on 03/01/22 Status: Acute (4) Primary osteoarthritis of right hip: Problem details: CT confirmed no subluxation or dislocation continue opioid therapy reviewed ortho consultation from January; not a surgical candidate with open sores. 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 In the last 4 months he has been declining from relatively independent to completely dependent. In reviewing the records it appears that patient has had decline month by month with recurrent hospitalizations and not made progress with therapy when he has been in [place] [facility] facilities. We have set a goal for him to get strong enough to transfer. Prognosis for that is guarded Status: Acute (7) Permanent atrial fibrillation: Problem details: OAC. Rate controlled. Status: Chronic (8) CKD (chronic kidney disease), stage III: Problem details: Stable Status: Chronic (9) Malnutrition: Problem details: Moderate protein calorie malnutrition as evidenced by skin breakdown, albumin of 3 on 02/22/2022 and gaunt appearance of face with generalized muscular atrophy of extremity Status: Acute Subjective Date Seen: 03/04/22 Interval history: Daily Progress Note - Hospital Medicine Day #: 11 s/p 8 of various IV abx: Rocephin, ceftazidime, vancomycin, Zosyn and s/p 5 days of Flagyl and Levaquin CC: Stage IV ulcers; end of life care; generalized weak OVERNIGHT UPDATES FROM STAFF & MED, LAB, IMAGING UPDATES On comfort cares; no respiratory distress Reviewing cultures: No MRSA. Bone shows no growth initially, this is now showing small amount of gram neg rods. Gram-negative rods in the wound culture from the right leg. Serratia odorifera resistant to cefazolin, cefoxitin Gram-negative rods, E coli in the buttock Blood culture negative Urine growing Pseudomonas previously Date of procedure: 02/25/22 Type of Procedure: 1. Debridement of coccyx pressure ulcer with irrigation Tendon was exposed, but not overtly necrotic. Bone was not exposed or involved. 2. Debridement of right buttock pressure ulcer with irrigation Dissection did involve necrotic muscle and tendon, with bone exposed. The bone did not appear necrotic 3. Debridement of right heel pressure ulcer with irrigation - the injury did probe to bone, but there is no evidence of bone necrosis. Review of Systems: remains weak and in general discomfort, w/increased pain during turns and wound care. See subjective Cardiac: No new chest pain/pressure/palpitations. Respiratory: no new dyspnea. GI: No abdominal bloating Objective: Awake. Coherent. Seems to have some moderate amount insight. Vitals: see above Lungs: Clear. Cardiac: S1S2. wounds not addressed today Disposition/Potential discharge - hospice house tomorrow in [place] Total time is 35 minutes with greater than 50% spent in counseling and coordination of care. Exam Const: Vital Signs, click to edit/add: Vital Signs - 24 hr 03/03/22 20:30 03/03/22 19:10 Temperature 98.4 F 98.4 F
[2022-03-04 16:07] LABS: SARS PCR* Negative SARS-CoV-2 (Negative)
[2022-03-05] MEDS: MORPHINE 10 MG/0.5 ML ORAL SOLN PO ×2 (04:57→10:35)
--- NOTE | 2022-03-05 05:18 | PC.NURSE ---
SHIFT NOTE -: Pt cooperative, turned and repositioned with 2 assist Q2H. PRN Morphine given for pain with pt reporting some relief. Rubalcava patent and draining.
[2022-03-05] MEDS: OMEPRAZOLE 20 MG CAPSULE DR PO (09:12)
[2022-03-05] MEDS: ACETAMINOPHEN 500 MG TABLET 1000 MG PO (09:13)
[2022-03-05] MEDS: SENNOSIDES/DOCUSATE TABLET 4 TAB PO (09:13)
--- NOTE | 2022-03-05 09:26 | PC.SOCIAL ---
Received a phone call from Kim at [facility] in [place] at [phone]. Kim was checking in to see if pt orders would be sent over. Informed Kim that Pt orders would be faxed to [phone] by Nursing staff. Inquired about pain medications that were sent to [facility] in [place]. Kim stated that family can pick them up and bring them to the facility. Provided information to charge nurse, Juliann. Informed that pt will leave at 10:30 am from [facility] via EMS. Kim asked that this worker connect with the daughter to ensure that she will be at [facility] to complete admission paperwork when pt arrives. This worker informed that this worker will call daughter and inform her. Phone call to pt's daughter, Yvette and Yvette's significant other, Trevor Luna. Informed them that pain medication needs to be picked up from [facility] in [place]. Provided the address to pick the medication up. Informed them that [facility] needs them at the facility upon admission for paperwork. Daughter confirmed that she is currently in the [facility] and she will leave ahead of time and stop at the pharmacy in [place] and drive to [facility] to meet pt up admission. Reminded daughter that initial payment is also needed today and she stated she is prepared to make payment. Phone call to charge nurse Juliann. Provided update on the above information.
--- NOTE | 2022-03-05 11:00 | PC.NURSE ---
Discharge. pt was transferred to [facility], via [facility]. he is alert x3. he is eating and drinking and has a Rubalcava. he has several wounds. pt did not want to be turned or repositioned, this am and daughter also said no to this. SL was d/c intact. he took pills with no problems and ate breakfast. pain med 10 Roxanol given on d/c and he also has a 50mcg left shoulder fentanyl patch on that was sent with pt.
--- NOTE | 2022-03-05 11:12 | PC.NURSE ---
called Kim at [facility] in [place]? and ave report
--- NOTE | 2022-03-05 17:43 | PM.DS1 ---
DS: Providers Provider Date Seen: 03/05/22 Date of admission: 02/22/22 18:07 Primary care physician: Not a Local Provider Admitting Clinician: Alana Renee MD Consults: 02/22/22 21:03 Consult to Nutrition [CONS] Routine Comment: Reason for consult:: Nutritional Consult Consult to Physical Therapy [CONS] Routine Comment: Reason(s) for PT Consult:: Evaluate Ambulation Any Restrictions?:: No Restrictions Consult to Lithographic Photographer Apprentice [CONS] Routine Comment: Reason for Consult:: Possible SNF placement Social Service Consult 02/22/22 21:04 Consult to Occupational Therapy [CONS] Routine Comment: Reason(s) for OT Consult:: Evaluate and Treat Any Restrictions?:: No Restrictions 02/22/22 21:22 Consult to Physician [CONS] Routine Comment: Consulting Provider: Tiffany Lewis Has provider been notified: Yes Attending Physician on discharge: Carmen Handy MD [facility] Date of Discharge: 03/05/22 DS: Diagnosis Discharge Diagnosis (1) Decubital ulcer: Status: Acute Problem details: Right heel, coccyx, right hip, penile Has received IV antibiotics and wound care with surgical debridement. Family conference with the patient and family yesterday, 03/01/2022, we elected to do comfort cares and hospice. (2) Has end of life care plan: Status: Acute Problem details: Hospice House in [place] 03/05/2022 (3) Chronic pain: Status: Acute Problem details: Requiring ongoing opioid therapy to manage the pain from his right hip as well as his ulcers. Starting fentanyl 25mcg transdermal 02/28/22, increased to 50 mcg on 03/01/22 (4) Primary osteoarthritis of right hip: Status: Acute Problem details: CT confirmed no subluxation or dislocation continue opioid therapy reviewed ortho consultation from January; not a surgical candidate with open sores. 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 In the last 4 months he has been declining from relatively independent to completely dependent. In reviewing the records it appears that patient has had decline month by month with recurrent hospitalizations and not made progress with therapy when he has been in [place] [facility] facilities. Family conference with patient and daughter happened as an inpatient. He requested comfort care and to focus on pain management and quality of life. (7) Debility: Status: Acute Problem details: severe; appropriate for hospice DS: Summary Hospital Course Hospital Course: Obtain urine from a catheterized specimen. Looked frankly purulent. Time Spent with Patient Time attestation: Total time spent providing and/or coordinating discharge services: Discharge Plan Discharge Disposition: Xfer Other Date of Admission: 02/22/22 18:07 Attending Provider on Discharge: Carmen Handy Consulting Providers: Tiffany Lewis Primary Care Provider: Provider,Not a Local Condition: Stable Anticipated Discharge Date/Time: 03/05/22 08:48 Discharge Medications: New fentanyl 50 mcg/hr patch 72 hour 1 patch transdermal Q72H Qty: 5 0RF morphine concentrate 10 mg/0.5 mL syringe 10 mg PO Q6H PRN (Reason: pain) Qty: 50 0RF Continued acetaminophen 500 mg tablet 1,000 mg PO TID Label Comments: Take 2 tablet by mouth three times a day Discontinued Eliquis 5 mg tablet 5 mg PO Q12H cyanocobalamin (vitamin B-12) 1,000 mcg tablet 1,000 mcg PO DAILY Label Comments: 1 tablet by mouth once a day furosemide 40 mg tablet 40 mg PO DAILY Label Comments: 1 tablet by mouth twice a day for 2 days, then, starting 02/13, give 40 mg by mouth one time a day rosuvastatin 5 mg tablet 5 mg PO Q24H sennosides-docusate sodium [Senna Plus] 8.6-50 mg tablet 4 tab-cap PO BID Label Comments: 4 tablet by mouth twice a day tamsulosin 0.4 mg capsule 0.4 mg PO Q24H Discharge Orders: Discharge Order (Routine); Ordered 03/05/22 Ordered By: Carmen Handy Activity Restrictions/Additional Instructions: Apply ABD pads/Mepliex dressings for comfort and change for seepage/soiling. Premedicate with SL morphine before changes. Let Virlyn decide when he wants turned or what he needs for comfort. Activity Detail: lift Discharge Diet: Regular Follow Up Appointments: Provider,Not a Local [Primary Care Provider] - Forms: [facility] Info Instructions Hospital Course: Obtain urine from a catheterized specimen. Looked frankly purulent. Discharge Comments: [facility] in [place]
== END 2022-03-05 10:45 | disposition short-term general hospital (02) | DRG 570 ==
LOC: ED 17:39 → MEDSURG 18:07
PROVIDERS: Family Medicine; Surgery; Admitting Provider Family Medicine; Emergency Provider Family Medicine; Visit Provider Family Medicine
PROC: 0JB90ZZ Excision of Buttock Subcutaneous Tissue and Fascia, Open Approach (ICD-10-PCS; principal; 2022-02-23 17:30)
PROC: 0KBV0ZZ Excision of Right Foot Muscle, Open Approach (ICD-10-PCS; principal; 2022-02-25 09:10)
DX: L89.154 Pressure ulcer of sacral region, stage 4 (principal); E43 Unspecified severe protein-calorie malnutrition; L03.317 Cellulitis of buttock; N39.0 Urinary tract infection, site not specified; I48.21 Permanent atrial fibrillation; E44.0 Moderate protein-calorie malnutrition; D62 Acute posthemorrhagic anemia; I13.0 Hypertensive heart and chronic kidney disease with heart failure and stage 1 through stage 4 chronic kidney disease, or unspecified chronic kidney disease; I50.32 Chronic diastolic (congestive) heart failure; K92.2 Gastrointestinal hemorrhage, unspecified; L03.116 Cellulitis of left lower limb; L03.115 Cellulitis of right lower limb; I96 Gangrene, not elsewhere classified; L89.614 Pressure ulcer of right heel, stage 4; L89.314 Pressure ulcer of right buttock, stage 4; L89.893 Pressure ulcer of other site, stage 3; L89.153 Pressure ulcer of sacral region, stage 3; N48.22 Cellulitis of corpus cavernosum and penis; N48.5 Ulcer of penis; B96.5 Pseudomonas (aeruginosa) (mallei) (pseudomallei) as the cause of diseases classified elsewhere; M62.59 Muscle wasting and atrophy, not elsewhere classified, multiple sites; I69.398 Other sequelae of cerebral infarction; R29.90 Unspecified symptoms and signs involving the nervous system; R26.89 Other abnormalities of gait and mobility; R41.0 Disorientation, unspecified; R33.8 Other retention of urine; R39.14 Feeling of incomplete bladder emptying; M16.11 Unilateral primary osteoarthritis, right hip; G89.29 Other chronic pain; M25.551 Pain in right hip; R60.9 Edema, unspecified; Z79.01 Long term (current) use of anticoagulants; N40.1 Benign prostatic hyperplasia with lower urinary tract symptoms; Z68.28 Body mass index [BMI] 28.0-28.9, adult; N18.30 Chronic kidney disease, stage 3 unspecified; D64.9 Anemia, unspecified; E78.00 Pure hypercholesterolemia, unspecified; Z86.718 Personal history of other venous thrombosis and embolism
CPT/HCPCS: 00300; 00400; 36415; 36430; 51702; 73502; 73650; 73700; 80048; 80053; 81001; 81003; 81015; 82040; 82330; 82607; 82746; 82803; 82977; 83540; 83550; 83605; 83735; 83880; 84443; 85018; 85025; 85045; 85610; 85730; 86140; 86850; 86900; 86901; 86922; 87040; 87077; 87081; 87086; 87186; 87205; 87635; 93926; 97161; 97166; 97530; 99100; 99140; 99284; A9270; C9113; J0330; J0696; J0713; J1170; J1756; J1940; J1956; J2270; J2543; J2704; J3010; J3370; J3480; J7050; J7120; P9016; P9047; S0030

== ENCOUNTER 2022-03-05 10:32 | Outpatient (CLI) | payer MEDICARE, SELFPAY | END 2022-03-05 10:33 | disposition home or self-care (01) | PROVIDERS: Visit Provider Family Medicine | DX: L98.499 Non-pressure chronic ulcer of skin of other sites with unspecified severity (principal); R10.2 Pelvic and perineal pain | CPT/HCPCS: A0425; A0428 ==